=== PATIENT | female | born 1960 | race Caucasian/White ===

== ENCOUNTER → 2017-09-02 | Outpatient (CLI) | payer OTHER ==
--- NOTE | 2017-09-04 13:17 | CT ---
"EXAMINATION TYPE: CT abdomen pelvis w con DATE OF EXAM: 09/02/2017, images are reviewed 09/04/2017 upon receipt of the comparison images. COMPARISON: [facility] dated 12/21/2016. INDICATION: Pancreatic CA history of Whipple, gross hematuria, bilateral flank pain DLP: 411.1 mGycm, Automated exposure control for dose reduction was used. CONTRAST: 125 mL of Isovue 370. Study performed with Oral Contrast TECHNIQUE: Axial images were obtained from above the diaphragm to the pubic rami in the axial plane a t 5 mm thick sections. Reconstructed images are reviewed on the computer in the coronal plane. FINDINGS: Limited CT sections are obtained the lung bases. There is interval development of multiple bilateral pulmonary nodules ranging approximately 0.62 1.0 cm in size. Some nodules have cavitation. Note is made of bilateral breast prostheses. CT ABDOMEN: Liver: There is an area of increased contrast within the anterior dome of the right lobe liver measur ing approximately 6.2 x 2.8 cm in size. This appears to been interval change from comparison study. T here is air in the biliary tree. There is subtle 0.8 cm hypodensity adjacent to the ligamentum teres within the right lobe liver. Series 5 image 40. A ill-defined 1.0 cm is in the right lobe liver. Seri es 5 image 35. There is a 0.8 cm hypodensity in the right lobe tip of the liver. Series 5 image 65. Spleen: Normal Pancreas: Pancreas is atrophic. The tail and body the pancreas are otherwise unremarkable. There is b een a Whipple's procedure and the head of the pancreas is been resected and there is anastomosis with the antrum of the stomach posteriorly. There appears to be recurrent mass inferior to the pancreas a djacent to the mesenteric vein and splenic artery is visualized series 5 image 50. This area is sligh tly hypodense and measures 2.9 x 1.7 cm. This appears to been interval change from the comparison ronnie dy of December 2016. Lymphadenopathy could be considered. Adrenal glands: The adrenal glands are normal. Gallbladder: Surgically absent Kidneys: No masses are evident. There is moderate right hydronephrosis. An obstructing 1.3 x 0.8 cm c alcification is present ureteral pelvic junction on the right. No cysts are present. Delayed images were obtained through the kidneys, which remain unremarkable. Aorta: Vascular calcification is within the aorta. Inferior vena cava: Normal. CT PELVIS: Loops of bowel within the abdomen and pelvis are normal. Fecal debris is through the colon. Some fecal retention within the distal colon may be present. Appendix: Not identified. Urinary bladder: Decompressed with very limited evaluation. Genitourinary structures: Uterus and ovaries are ill-defined. There is fullness anterior to the rectu m and above the urinary bladder which could be residual uterus and vaginal cuff. Correlate with patie nt's surgical history. Osseous structures: No suspicious lytic or sclerotic lesions. Facet degenerative changes are within t he lumbar spine. IMPRESSIONS: 1. Multiple pulmonary nodules, some of which appear connected to have cavitation are present, marked ly increased in number and size from the comparison study of December 2016 suspicious for metastatic disease. 2. Lymph node or recurrent pancreatic cancer adjacent to the mesenteric vein and splenic artery withi n the midabdomen. 3. Ill-defined hypodensities within the liver may be metastatic disease. 4. There is an additional area of some increased contrast within the anterior right lobe liver near t he dome which is nonspecific and ill-defined metastatic disease, inflammatory change, and focal fatty sparing could be considered. 5. Obstructing 1.3 x 0.8 cm right ureteral pelvic junction stone with moderate right hydronephrosis. A [place] level critical message alert has been initiated for Howie Moulton MD via the [employer] 36 0 | Critical Results System on 09/04/2017 1:14 PM. This message alert has been sent to Howie Moulton MD via the preferences provided by the clinician for the receipt of Radiology Critical Findings. [facility] ID [id number]."
== END | disposition home or self-care (01) ==
LOC: RADPROMAIN 10:44
PROVIDERS: ATTEND Internal Medicine Hematology & Oncology
DX: C25.7 Malignant neoplasm of other parts of pancreas (principal); C78.7 Secondary malignant neoplasm of liver and intrahepatic bile duct; N20.1 Calculus of ureter; Z88.1 Allergy status to other antibiotic agents
CPT/HCPCS: 74177; J1642; Q9967

== ENCOUNTER → 2017-09-06 | Outpatient (CLI) | payer OTHER ==
--- NOTE | 2017-09-06 15:34 | XR ---
Abdomen HISTORY: Kidney stones, pancreatic cancer Correlation to CT abdomen pelvis 09/02/2017 There is a calcification overlying the right renal pelvis measuring approximately 13 mm as on prior C T. Multiple calcifications are present within the pelvis likely representing phleboliths. There is no pneumoperitoneum or bowel obstruction. Spinal curvature is again noted. Lung bases are not included on the exam. IMPRESSION: Proximal right ureteral calculus or renal pelvic stone again seen.
== END | disposition home or self-care (01) ==
LOC: RADXRMAIN 12:58
PROVIDERS: ATTEND Urology
DX: N20.0 Calculus of kidney (principal)
CPT/HCPCS: 74018

== ENCOUNTER → 2017-09-07 | Outpatient (CLI) | payer OTHER ==
--- NOTE | 2017-09-10 12:35 | PE ---
Nuclear medicine PET/CT HISTORY: Pancreatic carcinoma, subsequent Patient received 13.3 mCi F-18 FDG intravenously in delayed scanning was performed from skull base to the mid thighs. Localization and attenuation correction CT scan was also performed. Correlation to prior CT abdomen pelvis 12/31/2016, 09/02/2017 Neck and chest: Multiple bilateral pulmonary nodules with cavitation are seen within the lungs, great er than 30 in each lung. The largest measures only 15 mm. There is no pleural or pericardial effusion . No suspicious hypermetabolic uptake. No mediastinal, axillary, or hilar adenopathy. Abdomen pelvis: There are thought to be 3 foci of hypermetabolic uptake within the liver, SUV 2.72-4. 3. These foci are not well seen on the CT scan. Pneumobilia changes are present. Soft tissue mass is present just inferior to the pancreas adjacent to the superior mesenteric vein and artery which shows associated hypermetabolic uptake, SUV is 5.6. Probable physiologic bowel activity noted. Osseous structures within normal limits. IMPRESSION: Metastatic disease as described.
== END | disposition home or self-care (01) ==
LOC: RADPETMAIN 16:09
PROVIDERS: ATTEND Internal Medicine Hematology & Oncology
DX: C25.0 Malignant neoplasm of head of pancreas (principal); R91.8 Other nonspecific abnormal finding of lung field; R93.2 Abnormal findings on diagnostic imaging of liver and biliary tract
CPT/HCPCS: 78815; A9552

== ENCOUNTER → 2017-09-13 | Outpatient (CLI) | payer OTHER ==
--- NOTE | 2017-09-13 13:33 | US ---
EXAMINATION TYPE: US liver DATE OF EXAM: 09/13/2017 COMPARISON: CT 09/02/2017, PET/CT 09/07/2017 CLINICAL HISTORY: Liver Mass K76.89. h/o pancreatic CA and whipple procedure performed 1 year prior EXAM MEASUREMENTS: Liver Length: 14.9 cm Gallbladder Wall: Surgically absent CBD: 0.9 cm Right Kidney: 10.4 x 4.9 x 4.2 cm Pancreas: limited views of pancreatic area, patient is post Whipple procedure Liver: 2 hypoechoic lesion seen left lobe, #1 lateral left lobe = 1.4cm, #2 medial left lobe = 1.1cm , heterogeneous texture of right dome noted corresponds to CT findings Gallbladder: Surgically absent Evidence for sonographic Espinoza's sign: no CBD: wnl for post cholecystectomy Right Kidney: 2.1cm inferior renal stone seen with twinkle artifact Right kidney shows normal cortical medullary differentiation, mild hydronephrosis noted. IMPRESSION: Hypoechoic lesions within the left lobe of the liver corresponding to PET/CT findings and are suspicious for metastatic disease. Right-sided nephrolithiasis with mild hydronephrosis.
== END ==
LOC: RADUSMAIN 11:33
PROVIDERS: ATTEND Pathology Cytopathology
DX: N13.2 Hydronephrosis with renal and ureteral calculous obstruction (principal); Z85.07 Personal history of malignant neoplasm of pancreas
CPT/HCPCS: 76705

== ENCOUNTER → 2017-09-13 | Outpatient (CLI) | payer OTHER ==
[2017-09-13 13:13] LABS: Basophils % (A) 0 %; Eosinophils # (A) 0.1 k/uL (0-0.7); Eosinophils % (A) 2 %; HCT 42.9 % (34.0-46.0); HGB 14.2 gm/dL (11.4-16.0); Lymphocytes # (A) 0.8 k/uL (1.0-4.8); Lymphocytes % (A) 13 %; MCH 30.3 pg (25.0-35.0); MCHC 33.1 g/dL (31.0-37.0); MCV 91.5 fL (80.0-100.0); Monocytes # (A) 0.4 k/uL (0-1.0); Monocytes % (A) 7 %; Neutrophils # (A) 4.5 k/uL (1.3-7.7); Neutrophils % (A) 76 %; Platelet Count 351 k/uL (150-450); RBC 4.69 m/uL (3.80-5.40); RDW 13.3 % (11.5-15.5)
[2017-09-13 13:26] LABS: Anion Gap 11 mmol/L; Blood Urea Nitrogen 18 mg/dL (7-17); Carbon Dioxide 27 mmol/L (22-30); Chloride 103 mmol/L (98-107); Glucose 94 mg/dL (74-99); Potassium 4.8 mmol/L (3.5-5.1); Sodium 141 mmol/L (137-145)
== END | disposition home or self-care (01) ==
LOC: LABWHC1 12:31 → LABPAT 12:31
PROVIDERS: ATTEND Urology
DX: N20.0 Calculus of kidney (principal)
CPT/HCPCS: 36415; 80048; 85025; 93005

== ENCOUNTER → 2017-09-19 | Outpatient (CLI) | payer OTHER ==
--- NOTE | 2017-09-19 13:32 | XR ---
Abdomen HISTORY: Renal calculus Frontal view of the abdomen correlated to prior abdomen 09/06/2017 The renal calculus in the paraspinal location is thought to be fragmented in the interval. There is o verlying bowel gas which obscures detail. Multiple calcifications are present within the pelvis, susp ect small stones at the level of the distal ureter on the right. There is a mild dextroscoliosis. IMPRESSION: Interval lithotripsy as described.
== END | disposition home or self-care (01) ==
LOC: RADXRMAIN 11:24
PROVIDERS: ATTEND Urology
DX: N20.0 Calculus of kidney (principal); Z98.890 Other specified postprocedural states
CPT/HCPCS: 74018

== ENCOUNTER → 2017-09-23 | Outpatient (CLI) | payer OTHER ==
--- NOTE | 2017-09-23 09:34 | XR ---
EXAMINATION TYPE: XR KUB DATE OF EXAM: 09/23/2017 COMPARISON: 09/19/2017 HISTORY: Renal calculi with right-sided pain and stone TECHNIQUE: One view abdominal series FINDINGS: The osseous structures are intact. The bowel gas pattern is nonspecific. Previous surgery noted in t he left abdomen. Hypertrophic changes of the spine noted. Pelvis: Numerous calcifications in the pelvis are likely vascular but nonspecific. Right kidney: There is a stable somewhat linear in morphology calcification lower pole right kidney m easuring 2 mm in diameter extending a length of 4 mm. Left kidney: No definite calcification seen. IMPRESSION: 1. Nonspecific abdomen. Stable lower pole right renal calculus measuring 2 x 4 mm.
== END ==
LOC: RADXRMAIN 09:16
PROVIDERS: ATTEND Urology
DX: N20.0 Calculus of kidney (principal)
CPT/HCPCS: 74018

== ENCOUNTER → 2017-09-26 | Day surgery (SDC) | payer OTHER ==
[~2017-09-26] MED LIST: ALPRAZolam 0.5 MG TAB PO ONE; LIDOCAINE 1% INJ 10MG/ML (20 ML MDV) SQ ONE; MORPHINE SULFATE 2 MG/ML SYRINGE IVP PRN; MORPHINE SULFATE 4 MG/ML SYRINGE IVP PRN
[2017-09-26 09:29] LABS: Mean Platelet Volume 6.4; Platelet Count 505 k/uL (150-450)
[2017-09-26 09:38] LABS: INR 1.2 (<1.2); Prothrombin Time 11.5 sec (9.0-12.0)
[2017-09-26] MEDS: MORPHINE SULFATE 4 MG/ML SYRINGE IVP ONE ×2 (10:08→11:26)
[2017-09-26 11:54] VITALS: TEMP 98.2
[2017-09-26 13:18] VITALS: RESP 16
--- NOTE | 2017-09-26 14:26 | US ---
EXAMINATION TYPE: US biopsy liver DATE OF EXAM: 09/26/2017 HISTORY: Liver masses, pancreatic carcinoma. FINDINGS: Maximal barrier technique was utilized. The skin overlying a suitable path to the patient' s mass in the left lobe was localized with ultrasound and the overlying skin prepped and draped. Ult rasound was utilized with sterile technique. Lidocaine was used for local anesthesia. A skin amparo w as made with a scalpel. An 17-gauge guide needle was advanced under direct ultrasound guidance and c ore specimen obtained of the mass within 18-gauge needle coaxially. Attempt to obtain an additional specimen was made without success. Attention directed to an additional lesion within the left lobe. 1 8-gauge needle was advanced and the level of the mass core specimen obtained. Specimens submitted in formalin to Pathology. Following the procedure, hemostasis achieved and the patient is discharged in stable condition without complication. IMPRESSION:STATUS POST ULTRASOUND GUIDED CORE BIOPSIES OF LIVER MASSES, PATHOLOGY IS PENDING. THIS P ROCEDURE IS PERFORMED BY THE UNDERSIGNED.
[2017-09-26 15:39] VITALS: BP 110/72; PULSE 72
== END | disposition home or self-care (01) ==
LOC: RADPROMAIN 08:56
PROVIDERS: ATTEND Internal Medicine Hematology & Oncology
DX: C78.7 Secondary malignant neoplasm of liver and intrahepatic bile duct (principal); C25.9 Malignant neoplasm of pancreas, unspecified
CPT/HCPCS: 85049; 85610; 88342; 88307; 88341; 96374; 47000; 76942; J2270; J2001; J1642

== ENCOUNTER → 2017-12-06 | Outpatient (CLI) | payer OTHER ==
[2017-12-06 12:03] LABS: Blood Urea Nitrogen 11 mg/dL (7-17)
--- NOTE | 2017-12-06 14:25 | CT ---
EXAMINATION TYPE: CT ChestAbdPelvis w con DATE OF EXAM: 12/06/2017 COMPARISON: CT abdomen pelvis September 02, 2017 and older outside studies. HISTORY: Pancreatic CA, suspected mets CT DLP: 1135 mGycm. Automated Exposure Control for Dose Reduction was Utilized. CONTRAST: CT scan of the thorax, abdomen and pelvis is performed with IV Contrast, patient injected with 100 mL of Isovue 370. FINDINGS: LUNGS: There are multiple scattered cavitary lesions throughout the lung parenchyma bilaterally. Ther e is a 13 x 9 mm nodule in the left lung base posteriorly axial image 49 redemonstrated that is fairl y stable from prior. No pleural effusion or pneumothorax is seen bilaterally. There is left basilar l inear scarring redemonstrated axial image 41. There is mild scattered areas of linear scarring and/or atelectasis. MEDIASTINUM: There are no greater than 1 cm hilar or mediastinal lymph nodes. No cardiomegaly is s een. There is right internal jugular Mediport catheter terminating in right ventricle. There are sma ll to tiny pericardial effusion axial image 42 increased in size from prior OTHER: Bilateral subglandular implants are noted. LIVER/GB: Liver is markedly hypodense consistent with fatty infiltration. Geographic areas of hyperde nsity likely reflect areas of focal fatty sparing or altered blood flow. Central pneumobilia is redem onstrated. Gallbladder is not seen and presumed surgically absent. PANCREAS: The mid to distal body and tail of pancreas are atrophic with ductal dilatation. Inferior t o this there is persistent abnormal tissue encasing SMA measuring roughly 3.2 x 2.2 cm on axial image 62 I suspect there has been prior resection of the pancreatic head which is not well identified on c urrent study adjacent to nonopacified duodenal sweep. SPLEEN: No significant abnormality is seen. ADRENALS: Slight thickening to left adrenal gland is stable. KIDNEYS: There is 4 mm calculus lower pole level right kidney coronal image 41. No suspicious renal m asses or hydronephrosis. Interval clearance of right collecting system calculus. BOWEL: Areas of moderate wall thickening throughout the colon are felt present for reference right an d transverse colon. Patient is very little transabdominal fat making evaluation suboptimal. GENITAL ORGANS: Anteverted uterus is seen. There is redemonstration of abnormal 2.9 x 2.0 cm cystic l esion right pelvis axial image 107. Scattered pelvic phleboliths are seen. LYMPH NODES: No greater than 1cm abdominal or pelvic lymph nodes are appreciated. OSSEOUS STRUCTURES: There is slight S-shaped scoliosis with mild multilevel spurring. OTHER: No significant additional abnormality is seen. IMPRESSION: 1. Interval neoplastic progression with enlarging inferior mass identified. Diffuse pulmonary hematog enous metastatic disease redemonstrated. Target basilar lesion is not significantly increased in size . 2. New moderate multifocal colitis, correlate clinically for infectious or inflammatory etiologies. 3. Malpositioned tip of Mediport catheter redemonstrated.
== END | disposition home or self-care (01) ==
LOC: RADPROMAIN 12-05 09:14
PROVIDERS: ATTEND Internal Medicine Hematology & Oncology
DX: C25.0 Malignant neoplasm of head of pancreas (principal); K52.9 Noninfective gastroenteritis and colitis, unspecified
CPT/HCPCS: 82565; 84520; 71260; 74177; J1642; Q9967

== ENCOUNTER → 2018-05-20 | Outpatient (CLI) | payer BC ==
--- NOTE | 2018-05-20 15:22 | CT ---
EXAMINATION TYPE: CT ChestAbdPelvis w con DATE OF EXAM: 05/20/2018 COMPARISON: 02/19/2018 HISTORY: Follow up pancreatic CA. CT DLP: 977 mGycm CONTRAST: CT scan of the chest, abdomen and pelvis is performed with Oral Contrast and with IV Contrast, patien t injected with 100 mL of Isovue 300. CT Chest: LUNGS: Innumerable cavitary pulmonary nodules are seen throughout both lung montemayor which have progres sed with regards to size and number. The largest nodule seen within the right upper lobe anteriorly c urrently measures 14 mm versus 9 mm previously. The largest nodule within the left lung is identified within the left lower lobe and measures 18 mm versus 15 mm previously. MEDIASTINUM: Thoracic aorta is of normal caliber. The heart is not enlarged. No evidence for media stinal mass or adenopathy. HILAR STRUCTURES: No evidence for mass. No hilar adenopathy is appreciated. OTHER: No significant abnormality. CONTRAST CT ABDOMEN AND PELVIS FINDINGS: LIVER/GB: Hypoattenuating lesions are noted within the left hepatic lobe measuring 2.1 cm and 2.1 cm respectively versus prior measurement of 2.4 cm. Additional area of abnormal attenuation is noted wit hin the left hepatic lobe medial segment measuring 2.7 cm versus 1.7 cm previously. New nodule is see n right hepatic lobe anterior segment measuring 1.1 cm. Several additional smaller new lesions are al so identified. There is intra and extra hepatic biliary ductal dilatation. There is evidence of pneum obilia. PANCREAS: There is an enlarging soft tissue mass at the level of the pancreatic body measuring 5.1 x 3.2 cm with encasement of the SMA. There has been prior partial pancreatectomy with remnant distal linus dy and tail are noted. Pancreatic ductal dilatation identified. SPLEEN: No splenic enlargement. No lesion seen. ADRENALS: No nodule. No thickening. KIDNEYS/BLADDER: No hydronephrosis. No nephrolithiasis. No disctinct renal mass. BOWEL: Normal appendix. Normal bowel caliber. No inflammation. GENITAL ORGANS: Uterus and left ovary are unremarkable. Right ovarian cyst noted measuring 3.8 cm. LYMPH NODES: No greater than 1cm abdominal or pelvic lymph nodes are appreciated. AORTA: No significant abnormality. OSSEOUS STRUCTURES: No significant abnormality is seen. OTHER: No significant additional abnormality is seen. IMPRESSION: 1. Recurrent pancreatic mass at the level of the pancreatic body with encasement of the SMA as discus sed above. Pancreatic ductal dilatation as well as intra and extrahepatic biliary ductal dilatation. 2. New lesions throughout the liver compatible with aggressive hepatic metastatic disease. 3.Innumerable cavitary pulmonary nodules are seen throughout both lung montemayor which have progressed w ith regards to size and number.
== END | disposition home or self-care (01) ==
LOC: RADPROMAIN 13:27
PROVIDERS: ATTEND Internal Medicine Hematology & Oncology
DX: C25.0 Malignant neoplasm of head of pancreas (principal); K76.9 Liver disease, unspecified; K83.8 Other specified diseases of biliary tract; R91.8 Other nonspecific abnormal finding of lung field; Z91.041 Radiographic dye allergy status
CPT/HCPCS: 71260; 74177; J1642; Q9967

== ENCOUNTER 2018-07-13 18:51 | Inpatient (IN) | payer BC ==
[2018-07-13] MEDS ORDERED: LACTULOSE 20 GM/30 ML CUP PO STA (19:15)
[2018-07-13] MEDS ORDERED: SODIUM CHLORIDE 0.9% 1,000 ML IV ONE ×2 (19:15)
--- NOTE | 2018-07-13 19:22 | ED ---
General Adult HPI - General Chief complaint: Altered Mental Status Stated complaint: AMS Time Seen by Provider: 07/13/18 19:05 Source: patient, RN notes reviewed, old records reviewed Mode of arrival: ambulatory Limitations: no limitations - History of Present Illness Initial comments: 58 -year-old female with recurrent pancreatic cancer and hepatic encephalopathy presenting for evaluation of jaundice and altered mental status. Patient is accompanied by her was able to give a detailed history. Patient had recent percutaneous biliary drain placed. This is been draining according to her . She has had decreased appetite and worsening abdominal distention. No reported fevers. No reported vomiting. She has been on lactulose,. Last bowel movement was yesterday evening. - Related Data Home Medications Medication Instructions Recorded Confirmed ALPRAZolam [Xanax] 0.75 mg PO DAILY PRN 09/23/17 07/13/18 Venlafaxine HCl [Effexor XR] 150 mg PO DAILY 09/23/17 07/13/18 Lipase/Protease/Amylase [Humberto Johnson 4 cap PO ACHS 02/17/18 07/13/18 24,000 Units Capsule] Dronabinol [Marinol] 5 mg PO BID 06/30/18 07/13/18 Lipase/Protease/Amylase [Humberto Johnson 2 cap PO DIRECTED PRN 06/30/18 07/13/18 24,000 Units Capsule] Ondansetron [Zofran ODT] 8 mg PO Q8H PRN 06/30/18 07/13/18 Pantoprazole Sodium [Protonix] 40 mg PO DAILY 06/30/18 07/13/18 Prochlorperazine [Compazine] 10 mg PO Q6H PRN 06/30/18 07/13/18 fentaNYL 25MCG/HR PATCH [Duragesic 1 patch TRANSDERM Q72H 06/30/18 07/13/18 25MCG/HR] Nivolumab [Opdivo] 240 mg IVPB [id number] 07/02/18 07/13/18 Diphenoxylate HCl/Atropine 2 tab PO Q6HR 07/13/18 07/13/18 [Lomotil 2.5-0.025 mg Tablet] Meloxicam [Mobic] 15 mg PO DAILY 07/13/18 07/13/18 Vortioxetine Hydrobromide 20 mg PO DAILY 07/13/18 07/13/18 [Trintellix] Previous Rx's Medication Instructions Recorded Lactulose [Cephulac] 20 gm PO DAILY #900 ml 07/07/18 Morphine Sulfate ER [Ms Contin] 60 mg PO Q12HR 14 Days #28 tab 07/07/18 Allergies Allergy/AdvReac Type Severity Reaction Status Date / Time cephalexin [From Keflex] Allergy Anaphylaxis Verified 07/13/18 19:23 Iodinated Contrast- Oral and Allergy Rash/Hives Verified 07/13/18 19:23 IV Dye prednisone Allergy Anaphylaxis Verified 07/13/18 19:23 tuna oil AdvReac Mild Nausea & Verified 07/13/18 19:23 Vomiting Review of Systems ROS Statement: Those systems with pertinent positive or pertinent negative responses have been documented in the HPI. ROS Other: All systems not noted in ROS Statement are negative. Past Medical History Past Medical History: Cancer, GERD/Reflux, Liver Disease, Sleep Apnea/C PAP/BIPAP, Syncope, Thyroid Disorder Additional Past Medical History / Comment(s): Metastatic pancreatic cancer with mets to liver/lymphnodes-had surgery and chemo, neuropathy from chemo, past REGLA with CPap but not used since extreme weight loss, hypothyroid, kidney stones, murmur, History of Any Multi-Drug Resistant Organisms: None Reported Additional Past Surgical History / Comment(s): ERCP, pancreatic head mass aspiration, Whipple procedure 2017 at [facility], liver bx, breast implants,dental implants, port placement Past Anesthesia/Blood Transfusion Reactions: No Reported Reaction Past Psychological History: Anxiety, Depression Smoking Status: Never smoker - Past Family History Mother Family Medical History: Cancer Additional Family Medical History / Comment(s): from complications of stomach cancer Father Family Medical History: Cancer, Prostate Disorder Additional Family Medical History / Comment(s): prostate cancer. General Exam Limitations: no limitations General appearance: in no apparent distress, lethargic Head exam: Present: atraumatic, normocephalic Eye exam: Present: scleral icterus ENT exam: Present: mucous membranes dry Respiratory exam: Present: normal lung sounds bilaterally. Absent: respiratory distress, wheezes Cardiovascular Exam: Present: normal rhythm, tachycardia GI/Abdominal exam: Present: soft, distended, tenderness. Absent: guarding, rebound Extremities exam: Present: normal inspection, normal capillary refill. Absent: pedal edema Neurological exam: Absent: motor sensory deficit Skin exam: Present: warm, dry, intact. Absent: cyanosis, diaphoretic (Jaundice) Course Vital Signs 07/13/18 19:00 Temperature 98.0 F Pulse Rate 119 H Respiratory 20 Rate Blood Pressure 105/73 O2 Sat by Pulse 99 Oximetry EKG Findings - EKG Comments: EKG Findings:: EKG: Sinus tachycardia, rightward axis, rate of 104, CO interval 156, QRS duration 88, QTC 397. Medical Decision Making - Medical Decision Making 58-year-old female with recurrent pancreatic cancer. Patient is altered, nonfocal neurologic exam. Finally jaundice. Laboratory studies obtained, patient has mild leukocyte esterase or 0.7, hemoglobin 10.1. Bilirubin elevated 14.8, elevated alkaline phosphatase and transaminitis. Ammonia 83 which is likely the predominant cause of her symptoms. She is given IV fluids and lactulose in the emergency department. She will be admitted to the ICU for close monitoring. Case discussed with both pulmonary well cleaner and Dr. Zamora who will admit. - Lab Data Result diagrams: 07/13/18 20:05 07/13/18 20:05 Lab Results 07/13/18 07/13/18 07/13/18 Range/Units 19:39 20:05 20:05 WBC 12.7 H (3.8-10.6) k/uL RBC 3.49 L (3.80-5.40) m/uL Hgb 10.1 L (11.4-16.0) gm/dL Hct 33.0 L (34.0-46.0) % MCV 94.7 (80.0-100.0) fL MCH 28.9 (25.0-35.0) pg MCHC 30.5 L (31.0-37.0) g/dL RDW 21.8 H (11.5-15.5) % Plt Count 330 (150-450) k/uL Neutrophils % 81 % Lymphocytes % 12 % Monocytes % 5 % Eosinophils % 1 % Basophils % 0 % Neutrophils # 10.3 H (1.3-7.7) k/uL Lymphocytes # 1.5 (1.0-4.8) k/uL Monocytes # 0.6 (0-1.0) k/uL Eosinophils # 0.1 (0-0.7) k/uL Basophils # 0.0 (0-0.2) k/uL Hypochromasia Marked Poikilocytosis Slight Anisocytosis Moderate Macrocytosis Slight Sodium 137 (137-145) mmol/L Potassium 3.6 (3.5-5.1) mmol/L Chloride 100 (98-107) mmol/L Carbon Dioxide 28 (22-30) mmol/L Anion Gap 9 mmol/L BUN 13 (7-17) mg/dL Creatinine 0.49 L (0.52-1.04) mg/dL Est GFR (CKD-EPI)AfAm >90 (>60 ml/min/1.73 sqM) Est GFR (CKD-EPI)NonAf >90 (>60 ml/min/1.73 sqM) Glucose 146 H (74-99) mg/dL POC Glucose (mg/dL) 163 H (75-99) mg/dL POC Glu [employer] Cutting Machine Operator ID Jeannine Chase Calcium 8.6 (8.4-10.2) mg/dL Total Bilirubin 14.8 H (0.2-1.3) mg/dL AST 100 H (14-36) U/L ALT 58 H (9-52) U/L Alkaline Phosphatase 695 H (38-126) U/L Ammonia (<30) umol/L Total Protein 6.5 (6.3-8.2) g/dL Albumin 2.7 L (3.5-5.0) g/dL 07/13/18 Range/Units 20:05 WBC (3.8-10.6) k/uL RBC (3.80-5.40) m/uL Hgb (11.4-16.0) gm/dL Hct (34.0-46.0) % MCV (80.0-100.0) fL MCH (25.0-35.0) pg MCHC (31.0-37.0) g/dL RDW (11.5-15.5) % Plt Count (150-450) k/uL Neutrophils % % Lymphocytes % % Monocytes % % Eosinophils % % Basophils % % Neutrophils # (1.3-7.7) k/uL Lymphocytes # (1.0-4.8) k/uL Monocytes # (0-1.0) k/uL Eosinophils # (0-0.7) k/uL Basophils # (0-0.2) k/uL Hypochromasia Poikilocytosis Anisocytosis Macrocytosis Sodium (137-145) mmol/L Potassium (3.5-5.1) mmol/L Chloride (98-107) mmol/L Carbon Dioxide (22-30) mmol/L Anion Gap mmol/L BUN (7-17) mg/dL Creatinine (0.52-1.04) mg/dL Est GFR (CKD-EPI)AfAm (>60 ml/min/1.73 sqM) Est GFR (CKD-EPI)NonAf (>60 ml/min/1.73 sqM) Glucose (74-99) mg/dL POC Glucose (mg/dL) (75-99) mg/dL POC Glu Glass Cutting [employer] Operator ID Calcium (8.4-10.2) mg/dL Total Bilirubin (0.2-1.3) mg/dL AST (14-36) U/L ALT (9-52) U/L Alkaline Phosphatase (38-126) U/L Ammonia 83 H (<30) umol/L Total Protein (6.3-8.2) g/dL Albumin (3.5-5.0) g/dL Disposition Clinical Impression: Hepatic encephalopathy, Altered mental status, Hyperammonemia Disposition: ADMITTED IP TO THIS [facility] Condition: Serious Is patient prescribed a controlled substance at d/c from ED?: No Referrals: Howie Moulton MD [Primary Care Provider] - 1-2 days Decision to Admit Reason: Admit from EC Decision Date: 07/13/18 Decision Time: 20:59
[2018-07-13 19:41] LABS: Glucose,Whole Blood 163 mg/dL (75-99)
[2018-07-13 20:28] LABS: Anisocytosis Moderate; Basophils % (A) 0 %; Eosinophils # (A) 0.1 k/uL (0-0.7); Eosinophils % (A) 1 %; HGB 10.1 gm/dL (11.4-16.0); Hypochromasia Marked; Lymphocytes # (A) 1.5 k/uL (1.0-4.8); Lymphocytes % (A) 12 %; MCH 28.9 pg (25.0-35.0); MCHC 30.5 g/dL (31.0-37.0); MCV 94.7 fL (80.0-100.0); Macrocytosis Slight; Mean Platelet Volume 7.2; Monocytes # (A) 0.6 k/uL (0-1.0); Monocytes % (A) 5 %; Neutrophils # (A) 10.3 k/uL (1.3-7.7); Neutrophils % (A) 81 %; Platelet Count 330 k/uL (150-450); Poikilocytosis Slight; RBC 3.49 m/uL (3.80-5.40); RDW 21.8 % (11.5-15.5); WBC 12.7 k/uL (3.8-10.6)
[2018-07-13 20:37] LABS: ALT 58 U/L (9-52); AST 100 U/L (14-36); Albumin 2.7 g/dL (3.5-5.0); Alkaline Phosphatase 695 U/L (38-126); Anion Gap 9 mmol/L; Blood Urea Nitrogen 13 mg/dL (7-17); Calcium 8.6 mg/dL (8.4-10.2); Carbon Dioxide 28 mmol/L (22-30); Chloride 100 mmol/L (98-107); Glucose 146 mg/dL (74-99); Potassium 3.6 mmol/L (3.5-5.1); Sodium 137 mmol/L (137-145); Total Bilirubin 14.8 mg/dL (0.2-1.3); Total Protein 6.5 g/dL (6.3-8.2)
[2018-07-13] MEDS ORDERED: NALOXONE 0.4 MG/ML 1 ML VIAL IV PRN (20:55)
[2018-07-13 21:06] LABS: INR 1.2 (<1.2); Partial Thromboplastin Time 26.2 sec (22.0-30.0); Prothrombin Time 12.2 sec (9.0-12.0)
[2018-07-13 22:57] LABS: Glucose,Whole Blood 140 mg/dL (75-99)
[2018-07-13] MEDS: MORPHINE SULFATE ER 60 MG TABLET PO SCH (23:05)
[2018-07-14] MEDS ORDERED: HYDROmorphone 0.5 MG/0.5 ML SYRINGE IVP STA (02:11)
[2018-07-14 02:51] LABS: Appearance,Urine Cloudy (Clear); Bilirubin,Urine 3+ (Negative); Blood,Urine Negative (Negative); Color,Urine Dark Brown; Glucose,Urine (UA) Negative (Negative); Hyaline Casts,Urine 4 /lpf (0-2); Ketones,Urine Negative (Negative); Leukocyte Esterase,Urine Negative (Negative); Mucus,Urine Few /hpf; Nitrite,Urine Negative (Negative); PH, Urine 6.5 (5.0-8.0); Protein,Urine Trace (Negative); RBC,Urine 2 /hpf (0-5); Squamous Epithelial Cell,Urine <1 /hpf (0-4); Urobilinogen,Urine <2.0 mg/dL (<2.0); WBC,Urine 2 /hpf (0-5)
[2018-07-14 04:43] LABS: Anisocytosis Moderate; Basophils % (A) 0 %; Eosinophils # (A) 0.1 k/uL (0-0.7); Eosinophils % (A) 1 %; HCT 29.1 % (34.0-46.0); Hypochromasia Marked; Lymphocytes # (A) 1.6 k/uL (1.0-4.8); Lymphocytes % (A) 16 %; MCH 29.1 pg (25.0-35.0); MCV 93.8 fL (80.0-100.0); Macrocytosis Slight; Mean Platelet Volume 7.1; Monocytes # (A) 0.6 k/uL (0-1.0); Monocytes % (A) 6 %; Neutrophils # (A) 7.4 k/uL (1.3-7.7); Neutrophils % (A) 74 %; Platelet Count 254 k/uL (150-450); Poikilocytosis Slight; RDW 21.6 % (11.5-15.5); WBC 9.9 k/uL (3.8-10.6)
[2018-07-14 04:56] LABS: Anion Gap 5 mmol/L; Blood Urea Nitrogen 12 mg/dL (7-17); Carbon Dioxide 30 mmol/L (22-30); Chloride 103 mmol/L (98-107); Glucose 122 mg/dL (74-99); Magnesium 2.2 mg/dL (1.6-2.3); Phosphorus 2.7 mg/dL (2.5-4.5); Potassium 3.3 mmol/L (3.5-5.1); Sodium 138 mmol/L (137-145)
[2018-07-14] MEDS ORDERED: ONDANSETRON ODT 8 MG TAB.RAPDIS PO PRN (05:22)
[2018-07-14] MEDS ORDERED: POTASSIUM BICARBONATE/CIT AC 20 MEQ TABLET.EFF PO ONE (05:26)
[2018-07-14] MEDS ORDERED: HYDROmorphone 0.5 MG/0.5 ML SYRINGE IVP PRN (05:51)
--- NOTE | 2018-07-14 06:30 | P.HPIM ---
History of Present Illness H&P Date: 07/13/18 Chief Complaint: altered mental status 58-year-old female with history of stage IV pancreatic cancer with metastases to the liver and lung status post Whipple procedure Patient was brought into the hospital due to altered mental status and increased jaundice. Patient unable to provide meaningful history history was obtained by reviewing medical records. reported that biliary drain still functional patient is a known physician at our hospital. However he is reporting decreased appetite and worsening abdominal distention without any fevers or chills. No vomiting no evidence of GI bleeding at this point. Patient has been tolerating her medications and her last bowel movement was yesterday none melena nonbloody. patient has been moaning and seems to be complaining of both back and abd pain , back pain is chronic , but abd pain seems to be new onset. no hematuria Patient has recently been hospitalized and discharged 1 week ago for altered me ntal status which was thought to be due to hyperammonemia and hyperbilirubinemia abdominal CAT scan did show enlarging mass underneath the pancreatic head extending into the jordana hepatis with cut off bile duct at the level of jordana hepatis with moderate to severe intrahepatic ductal dilatation patient had the percutaneous biliary drainage without complications. Patient was discharged with referral to palliative care Review of Systems ROS unobtainable: due to mental status Past Medical History Past Medical History: Cancer, GERD/Reflux, Liver Disease, Sleep Apnea/CPAP/BIPAP, Syncope, Thyroid Disorder Additional Past Medical History / Comment(s): Metastatic pancreatic cancer with mets to liver/lymphnodes-had surgery and chemo, neuropathy from chemo, past REGLA with CPap but not used since extreme weight loss, hypothyroid, kidney stones, murmur, History of Any Multi-Drug Resistant Organisms: None Reported Additional Past Surgical History / Comment(s): ERCP, pancreatic head mass aspiration, Whipple procedure 2017 at [facility], liver bx, breast implants,dental implants, port placement Past Anesthesia/Blood Transfusion Reactions: No Reported Reaction Past Psychological History: Anxiety, Depression Smoking Status: Never smoker - Past Family History Mother Family Medical History: Cancer Additional Family Medical History / Comment(s): from complications of stomach cancer Father Family Medical History: Cancer, Prostate Disorder Additional Family Medical History / Comment(s): prostate cancer. Medications and Allergies Home Medications Medication Instructions Recorded Confirmed Type ALPRAZolam [Xanax] 0.75 mg PO DAILY PRN 09/23/17 07/13/18 History Venlafaxine HCl [Effexor XR] 150 mg PO DAILY 09/23/17 07/13/18 History Lipase/Protease/Amylase [Humberto Johnson 4 cap PO ACHS 02/17/18 07/13/18 History 24,000 Units Capsule] Dronabinol [Marinol] 5 mg PO BID 06/30/18 07/13/18 History Lipase/Protease/Amylase [Humberto Johnson 2 cap PO DIRECTED PRN 06/30/18 07/13/18 H istory 24,000 Units Capsule] Ondansetron [Zofran ODT] 8 mg PO Q8H PRN 06/30/18 07/13/18 History Pantoprazole Sodium [Protonix] 40 mg PO DAILY 06/30/18 07/13/18 History Prochlorperazine [Compazine] 10 mg PO Q6H PRN 06/30/18 07/13/18 History fentaNYL 25MCG/HR PATCH [Duragesic 1 patch TRANSDERM Q72H 06/30/18 07/13/18 History 25MCG/HR] Nivolumab [Opdivo] 240 mg IVPB [id number] 07/02/18 07/13/18 History Lactulose [Cephulac] 20 gm PO DAILY #900 ml 07/07/18 07/13/18 Rx Morphine Sulfate ER [Ms Contin] 60 mg PO Q12HR 14 Days #28 tab 07/07/18 07/13/18 Rx Diphenoxylate HCl/Atropine 2 tab PO Q6HR 07/13/18 07/13/18 History [Lomotil 2.5-0.025 mg Tablet] Meloxicam [Mobic] 15 mg PO DAILY 07/13/18 07/13/18 History Vortioxetine Hydrobromide 20 mg PO DAILY 07/13/18 07/13/18 History [Trintellix] Allergies Allergy/AdvReac Type Severity Reaction Status Date / Time cephalexin [From Keflex] Allergy Anaphylaxis Verified 07/13/18 19:23 Iodinated Contrast- Oral and Allergy Rash/Hives Verified 07/13/18 19:23 IV Dye prednisone Allergy Anaphylaxis Verified 07/13/18 19:23 tuna oil AdvReac Mild Nausea & Verified 07/13/18 19:23 Vomiting Physical Exam Vitals: Vital Signs Temp Pulse Resp BP Pulse Ox 07/14/18 03:00 92 11 L 117/75 97 07/14/18 02:00 97 13 115/77 90 L 07/14/18 01:00 96 11 L 115/80 94 L 07/14/18 00:00 98.1 F 94 12 119/74 92 L 07/13/18 23:00 96 11 L 122/77 95 07/13/18 22:23 105 H 16 119/81 98 07/13/18 22:00 99 117/84 92 L 07/13/18 21:20 100 16 118/85 96 07/13/18 21:00 102 H 118/82 96 07/13/18 20:00 123/82 94 L 07/13/18 19:29 123/82 98 07/13/18 19:00 98.0 F 119 H 20 105/73 99 Intake and Output 07/13/18 07/13/18 07/14/18 14:59 22:59 06:59 Intake Total 500 Output Total 700 Balance -200 Intake: IV 500 Sodium Chloride 0.9% 1, 500 000 ml @ 100 mls/hr IV . Q10H ONE Rx#:[id number] Output: Urine 700 Other: Voiding Method Diaper Incontinent Weight 56.699 kg Constitutional: patient moaning in pain , follows simple commands off / on Eyes: deep jaundice Pupils equal round reactive to light ENMT: NC/AT Oropharynx clear, no erythema, or exudates Neck: Supple, FROM, no masses, or JVD No carotid bruits No thyromegaly Lungs: Clear to auscultation Clear to percussion Normal respiratory effort, no accessory muscle use Cardiovascular: Heart regular in rate and rhythm, No murmurs, gallops, or rubs No peripheral edema Abdominal: distended, diffusely tender to palpation , no rebound tendern ess or rigidity percutaneous biliary drain in place in the epigastric region bowel sounds sluggish No abdominal wall hernia noted Skin: right mediport in place, surrounding skin is unremarkable Normal temperature, tone, texture, turgor No induration No subcutaneous nodules No rash, lesions No ulcers Extremities: No digital cyanosis No clubbing Pedal pulses intact and symmetrical Radial pulses intact and symmetrical No calf tenderness Psychiatric: patient is awake but confused Neuro moving all extremities with good tone, could not cooperate with neuro exam patient is moaning in pain and tearful Lymphatics: no palpable cervical or supraclavicular , or inguinal lymph nodes Results CBC & Chem 7: 07/14/18 04:30 07/14/18 04:30 Labs: Abnormal Lab Results - Last 24 Hours (Table) 07/13/18 07/13/18 07/13/18 Range/Units 19:39 20:05 20:05 WBC 12.7 H (3.8-10.6) k/uL RBC 3.49 L (3.80-5.40) m/uL Hgb 10.1 L (11.4-16.0) gm/dL Hct 33.0 L (34.0-46.0) % MCHC 30.5 L (31.0-37.0) g/dL RDW 21.8 H (11.5-15.5) % Neutrophils # 10.3 H (1.3-7.7) k/uL PT (9.0-12.0) sec INR (<1.2) Potassium (3.5-5.1) mmol/L Creatinine 0.49 L (0.52-1.04) mg/dL Glucose 146 H (74-99) mg/dL POC Glucose (mg/dL) 163 H (75-99) mg/dL Calcium (8.4-10.2) mg/dL Total Bilirubin 14.8 H (0.2-1.3) mg/dL AST 100 H (14-36) U/L ALT 58 H (9-52) U/L Alkaline Phosphatase 695 H (38-126) U/L Ammonia (<30) umol/L Albumin 2.7 L (3.5-5.0) g/dL Urine Appearance (Clear) Urine Protein (Negative) Urine Bilirubin (Negative) Hyaline Casts (0-2) /lpf Urine Mucus (None) /hpf 07/13/18 07/13/18 07/13/18 Range/Units 20:05 20:05 22:45 WBC (3.8-10.6) k/uL RBC (3.80-5.40) m/uL Hgb (11.4-16.0) gm/dL Hct (34.0-46.0) % MCHC (31.0-37.0) g/dL RDW (11.5-15.5) % Neutrophils # (1.3-7.7) k/uL PT 12.2 H (9.0-12.0) sec INR 1.2 H (<1.2) Potassium (3.5-5.1) mmol/L Creatinine (0.52-1.04) mg/dL Glucose (74-99) mg/dL POC Glucose (mg/dL) 140 H (75-99) mg/dL Calcium (8.4-10.2) mg/dL Total Bilirubin (0.2-1.3) mg/dL AST (14-36) U/L ALT (9-52) U/L Alkaline Phosphatase (38-126) U/L Ammonia 83 H (<30) umol/L Albumin (3.5-5.0) g/dL Urine Appearance (Clear) Urine Protein (Negative) Urine Bilirubin (Negative) Hyaline Casts (0-2) /lpf Urine Mucus (None) /hpf 07/14/18 07/14/18 07/14/18 Range/Units 02:40 04:30 04:30 WBC (3.8-10.6) k/uL RBC 3.10 L (3.80-5.40) m/uL Hgb 9.0 L (11.4-16.0) gm/dL Hct 29.1 L (34.0-46.0) % MCHC (31.0-37.0) g/dL RDW 21.6 H (11.5-15.5) % Neutrophils # (1.3-7.7) k/uL PT (9.0-12.0) sec INR (<1.2) Potassium 3.3 L (3.5-5.1) mmol/L Creatinine 0.44 L (0.52-1.04) mg/dL Glucose 122 H (74-99) mg/dL POC Glucose (mg/dL) (75-99) mg/dL Calcium 8.0 L (8.4-10.2) mg/dL Total Bilirubin (0.2-1.3) mg/dL AST (14-36) U/L ALT (9-52) U/L Alkaline Phosphatase (38-126) U/L Ammonia (<30) umol/L Albumin (3.5-5.0) g/dL Urine Appearance Cloudy H (Clear) Urine Protein Trace H (Negative) Urine Bilirubin 3+ H (Negative) Hyaline Casts 4 H (0-2) /lpf Urine Mucus Few H (None) /hpf Assessment and Plan Assessment: 58-year-old female with history of stage IV pancreatic cancer with metastases to the liver and lungs his post Whipple procedure admitted as inpatient with anticipated length of stay more than 48 hours due to altered mental status secondary to hyperbilirubinemia and hyperammonemia and new onset abd pain, patient will be maintained on lactulose targeting 3-5 bowel movements will monitor for any GI bleeding, we'll follow up liver function and ammonia level. She will be monitored initially in the ICU. Plan: Acute metabolic encephalopathy secondary to hyperammonemia and hyperbilirubinemia Stage IV pancreatic cancer with metastases to the liver and lungs Acute mild - mod hepatic encephalopathy Lactulose 3 times a day targeting 3-5 bowel movements Percutaneous biliary drain care Monitor vital signs and liver function Monitor ammonia level Aspiration precautions Fall precautions Neurochecks Admission to the ICU for close monitoring check abd US and paracentesis if evidence of ascites r/o SBP Leukocytosis with abd pain monitor for fevers follow up blood culture uriine unremarkable check abd US, for any ascites that needs paracentesis , to r/o SBP Chronic anemia secondary to chronic disease , monitor for any evidence of GI bleeding Current hemoglobin is higher than her baseline Continue to monitor hemoglobin closely Continue PPI by mouth Chronic back pain pain control continue home meds add IV opiods for breakthrough pain History of depression continue home meds Preformed a thorough record review from recent hospitalization patient was hospitalized and discharged a week ago for acute hepatic encephalopathy secondary to hyperbilirubinemia and hyperammonemia secondary to stage IV pancreatic cancer Surrogate decision-maker: Patient CODE STATUS: full code DVT prophylaxis: Heparin subcu 3 times a day Discussed with: Patient, ER, RN Anticipated discharge: 48-[address]: Pending clinical course A total of 60 minutes was spent on the care of this complex patient more than 50% of the time was spent in counseling and care coordination.
--- NOTE | 2018-07-14 08:52 | XR ---
EXAMINATION TYPE: XR chest 1V DATE OF EXAM: 07/14/2018 COMPARISON: 07/03/2018 HISTORY: Cough TECHNIQUE: Single frontal view of the chest is obtained. FINDINGS: Mediport catheter seen. There is diffuse bilateral infiltrates with small effusion. Curvat ure the spine with degenerative changes suggested. No pneumothorax. Heart size stable. IMPRESSION: Stable bilateral diffuse infiltrate
[2018-07-14] MEDS ORDERED: MORPHINE SULFATE ER 60 MG TABLET PO SCH (09:00)
[2018-07-14] MEDS ORDERED: PANTOPRAZOLE 40 MG/10 ML VIAL IV SCH (09:00)
--- NOTE | 2018-07-14 09:23 | P.CNPUL ---
History of Present Illness Consult date: 07/14/18 Requesting physician: Brennon Mackey Reason for consult: other Chief complaint: Altered mental status History of present illness: This is a 58-year-old white female patient with history of stage IV pancreatic cancer with metastasis to the liver and lungs status post Whipple procedure. She was recently hospitalized for hepatic encephalopathy related to hepatic encephalopathy, obstructive jaundice related to pancreatic tumor. She had a biliary drain inserted percutaneously during previous admission, she was started on Opdivo, she clinically improved, and was discharged home on 07/07/2018. During previous mission patient status was DNR/DNI, and the patient and her were considering hospice care. On 07/13/2018 patient was brought in to the hospital for evaluation of jaundice, and altered mental status. Most information is obtained from the chart, the patient is a poor historian, she was able to provide some information, he states she was having increased pain on both sides of her torso. She was reportedly having decreased appetite and worsening abdominal distention. No fevers, no nausea or vomiting, she had been on lactulose. She still has a right-sided percutaneous biliary drain which is draining moderate amount of bilious drainage. Chest x-ray showed stable bi lateral diffuse infiltrates seen on previous chest x-ray related to extensive metastasis to the lungs. Lab work showed a white blood cell count of 12.7, hemoglobin of 10.1, INR is 1.2, electrodes were within normal limits, BUN is 30 creatinine is 0.49. Total bilirubin was 14.8, AST was 100, ALT was 58, alkaline phosphatase was 695, ammonia level was 83, albumin level is 2.7, urinalysis showed trace protein, 3+ bilirubin, but negative for RBCs, WBCs, or leucocyte esterase. This morning patient is seen in the intensive care unit, she is awake and alert, she is able to provide some answers, but intermittently confused, does not appear to be in any acute distress. Jaundiced. Patient was given IV fluids and lactulose in the emergency department, she is passing bowel movements. Shortness of breath, no chest pain, no nausea, vomiting. Still complaining of abdominal discomfort on bilateral sides of abdomen, but no acute distress, she is on oral MS Contin, and IV Dilaudid for breakthrough pain. She is on a fentanyl patch 25 mics per hour. Review of Systems All systems: negative Constitutional: Reports lethargy, Reports malaise, Reports weakness, Denies chills, Denies fever Eyes: denies blurred vision, denies pain Ears, nose, mouth and throat: Denies headache, Denies sore throat Cardiovascular: Denies chest pain, Denies shortness of breath Respiratory: Denies cough Gastrointestinal: Reports abdominal pain, Reports bloating, Reports loss of appetite, Denies diarrhea, Denies nausea, Denies vomiting Genitourinary: Denies dysuria, Denies hematuria Musculoskeletal: Denies myalgias Integumentary: Denies pruritus, Denies rash Neurological: Denies numbness, Denies weakness Psychiatric: Denies anxiety, Denies depression Endocrine: Denies fatigue, Denies weight change Past Medical History Past Medical History: Cancer, GERD/Reflux, Liver Disease, Sleep Apnea/CPAP/BIPAP, Syncope, Thyroid Disorder Additional Past Medical History / Comment(s): Metastatic pancreatic cancer with mets to liver/lymphnodes-had surgery and chemo, neuropathy from chemo, past REGLA with CPap but not used since extreme weight loss, hypothyroid, kidney stones, murmur, History of Any Multi-Drug Resistant Organisms: None Reported Additional Past Surgical History / Comment(s): ERCP, pancreatic head mass aspiration, Whipple procedure 2017 at [facility], liver bx, breast implants,dental implants, port placement Past Anesthesia/Blood Transfusion Reactions: No Reported Reaction Past Psychological History: Anxiety, Depression Smoking Status: Never smoker - Past Family History Mother Family Medical History: Cancer Additional Family Medical History / Comment(s): from complications of stomach cancer Father Family Medical History: Cancer, Prostate Disorder Additional Family Medical History / Comment(s): prostate cancer. Medications and Allergies Home Medications Medication Instructions Recorded Confirmed Type ALPRAZolam [Xanax] 0.75 mg PO DAILY PRN 09/23/17 07/13/18 History Venlafaxine HCl [Effexor XR] 150 mg PO DAILY 09/23/17 07/13/18 History Lipase/Protease/Amylase [Humberto Johnson 4 cap PO ACHS 02/17/18 07/13/18 History 24,000 Units Capsule] Dronabinol [Marinol] 5 mg PO BID 06/30/18 07/13/18 History Lipase/Protease/Amylase [Humberto Johnson 2 cap PO DIRECTED PRN 06/30/18 07/13/18 History 24,000 Units Capsule] Ondansetron [Zofran ODT] 8 mg PO Q8H PRN 06/30/18 07/13/18 History Pantoprazole Sodium [Protonix] 40 mg PO DAILY 06/30/18 07/13/18 History Prochlorperazine [Compazine] 10 mg PO Q6H PRN 06/30/18 07/13/18 History fentaNYL 25MCG/HR PATCH [Duragesic 1 patch TRANSDERM Q72H 06/30/18 07/13/18 History 25MCG/HR] Morphine Sulfate ER [Ms Contin] 60 mg PO Q12HR 14 Days #28 tab 07/07/18 07/13/18 Rx Diphenoxylate HCl/Atropine 2 tab PO Q6HR 07/13/18 07/13/18 History [Lomotil 2.5-0.025 mg Tablet] Meloxicam [Mobic] 15 mg PO DAILY 07/13/18 07/13/18 History Vortioxetine Hydrobromide 20 mg PO DAILY 07/13/18 07/13/18 History [Trintellix] HYDROcodone/APAP 10-325MG [Arnold 1 tab PO Q6HR PRN 07/14/18 07/14/18 History 10-325] L.acidoph,Paracasei, B.lactis 1 cap PO DAILY 07/14/18 07/14/18 History [Probiotic] Lipase/Protease/Amylase [Zenpep Dr 1 cap PO DAILY 07/14/18 07/14/18 History 5,000 Unit Capsule] Allergies Allergy/AdvReac Type Severity Reaction Status Date / Time cephalexin [From Keflex] Allergy Anaphylaxis Verified 07/13/18 19:23 Iodinated Contrast- Oral and Allergy Rash/Hives Verified 07/13/18 19:23 IV Dye prednisone Allergy Anaphylaxis Verified 07/13/18 19:23 tuna oil AdvReac Mild Nausea & Verified 07/13/18 19:23 Vomiting Physical Exam Vitals: Vital Signs Temp Pulse Resp BP Pulse Ox 07/14/18 08:00 87 13 118/74 99 07/14/18 07:00 85 12 125/74 98 07/14/18 06:00 92 17 110/74 97 07/14/18 05:00 89 14 106/73 93 L 07/14/18 04:00 98.0 F 87 12 112/75 92 L 07/14/18 03:00 92 11 L 117/75 97 07/14/18 02:00 97 13 115/77 90 L 07/14/18 01:00 96 11 L 115/80 94 L 07/14/18 00:00 98.1 F 94 12 119/74 92 L 07/13/18 23:00 96 11 L 122/77 95 07/13/18 22:23 105 H 16 119/81 98 07/13/18 22:00 99 117/84 92 L 07/13/18 21:20 100 16 118/85 96 07/13/18 21:00 102 H 118/82 96 07/13/18 20:00 123/82 94 L 07/13/18 19:29 123/82 98 07/13/18 19:00 98.0 F 119 H 20 105/73 99 Intake and Output 07/13/18 07/14/18 07/14/18 22:59 06:59 14:59 Intake Total 800 100 Output Total 780 30 Balance 20 70 Intake: IV 800 100 Sodium Chloride 0.9% 1, 800 100 000 ml @ 100 mls/hr IV . Q10H ONE Rx#:[id number] Output: Urine 780 30 Other: Voiding Method Indwelling Catheter Weight 56.699 kg 57.4 kg GENERAL EXAM: Alert, oriented to person, jaundiced 58-year-old female, comfortable in no apparent distress. HEAD: Normocephalic/atraumatic. EYES: Normal reaction of pupils, equal size. Conjunctiva pink, sclera white. NOSE: Clear with pink turbinates. THROAT: No erythema or exudates. NECK: No masses, no JVD, no thyroid enlargement, no adenopathy. CHEST: No chest wall deformity. Symmetrical expansion. LUNGS: Equal air entry with a few scattered rhonchi, no wheezes no rales CVS: Regular rate and rhythm, normal S1 and S2, no gallops, no murmurs, no rubs ABDOMEN: Soft, nontender. No hepatosplenomegaly, normal bowel sounds, no guarding or rigidity. Right-sided percutaneous biliary drain present with bilious drainage in the bag EXTREMITIES: No clubbing, no edema, no cyanosis, 2+ pulses and upper and lower extremities. MUSCULOSKELETAL: Muscle strength and tone normal. SPINE: No scoliosis or deformity SKIN: No rashes CENTRAL NERVOUS SYSTEM: Alert and oriented -3. No focal deficits, tone is norm al in all 4 extremities. PSYCHIATRIC: Alert and oriented -3. Appropriate affect. Intact judgment and insight. Results - Laboratory Findings CBC and BMP: 07/14/18 04:30 07/14/18 04:30 PT/INR, D-dimer PT 12.2 sec (9.0-12.0) H 07/13/18 20:05 INR 1.2 (<1.2) H 07/13/18 20:05 Abnormal lab findings: Abnormal Labs 07/13/18 07/13/18 07/13/18 19:39 20:05 20:05 WBC 12.7 H RBC 3.49 L Hgb 10.1 L Hct 33.0 L MCHC 30.5 L RDW 21.8 H Neutrophils # 10.3 H PT INR Potassium Creatinine 0.49 L Glucose 146 H POC Glucose (mg/dL) 163 H Calcium Total Bilirubin 14.8 H AST 100 H ALT 58 H Alkaline Phosphatase 695 H Ammonia Albumin 2.7 L Urine Appearance Urine Protein Urine Bilirubin Hyaline Casts Urine Mucus 07/13/18 07/13/18 07/13/18 20:05 20:05 22:45 WBC RBC Hgb Hct MCHC RDW Neutrophils # PT 12.2 H INR 1.2 H Potassium Creatinine Glucose POC Glucose (mg/dL) 140 H Calcium Total Bilirubin AST ALT Alkaline Phosphatase Ammonia 83 H Albumin Urine Appearance Urine Protein Urine Bilirubin Hyaline Casts Urine Mucus 07/14/18 07/14/18 07/14/18 02:40 04:30 04:30 WBC RBC 3.10 L Hgb 9.0 L Hct 29.1 L MCHC RDW 21.6 H Neutrophils # PT INR Potassium 3.3 L Creatinine 0.44 L Glucose 122 H POC Glucose (mg/dL) Calcium 8.0 L Total Bilirubin AST ALT Alkaline Phosphatase Ammonia Albumin Urine Appearance Cloudy H Urine Protein Trace H Urine Bilirubin 3+ H Hyaline Casts 4 H Urine Mucus Few H - Diagnostic Findings Chest x-ray: report reviewed, image reviewed Assessment and Plan Plan: Assessment: #1. Altered mental status likely related to elevated ammonia, elevated serum bilirubin related to hepatic encephalopathy #2. Stage 4 metastatic pancreatic cancer with metastasis to the liver and lungs, status post Whipple procedure #3. Recent admission for altered mental status, hepatic encephalopathy, obstructive jaundice, status post percutaneous biliary drain placement #4. Abdominal pain, abdominal distention likely related to underlying metastatic pancreatic cancer #5. Hypothyroidism #6. History of obstructive sleep apnea, does not wear CPAP #7. History of nephrolithiasis #8. Lifetime nonsmoker #9. Anxiety/depression Plan: Continue with the lactulose, patient is awake and alert, able to answer simple questions, no acute distress, no difficulty breathing, no chest pain, still having some mild abdominal discomfort, continues on fentanyl patch, IV and oral medications. Hemodynamically stable, no difficulty breathing, from pulmonary/critical care perspective patient is stable to transfer out of the intensive care unit today to oncology floor. Consult medical oncology. We'll continue to follow, I performed a history & physical examination of the patient and discussed their management with my nurse practitioner, Loida Paul. I reviewed the nurse practitioner's note and agree with the documented findings and plan of care. Lung sounds are positive for a few scattered rhonchi. The findings and the impression was discussed with the patient. I attest to the documentation by the nurse practitioner. Time with Patient: Greater than 30
[2018-07-14] MEDS: HEPARIN SODIUM,PORCINE 5,000 UNIT/ML 1 ML VIAL SQ SCH ×3 (10:21→23:22)
--- NOTE | 2018-07-14 10:21 | P.PN ---
Subjective Progress Note Date: 07/14/18 Patient is alert but confused this morning. She is only oriented to herself. There is no acute events reported to me by nursing staff. Patient is getting lactulose around the clock targeting 3-5 bowel movement. Repeat ammonia level was not done this morning. Objective - Vital Signs Vital signs: Vital Signs Temp 98.0 F 07/14/18 04:00 Pulse 89 07/14/18 09:00 Resp 12 07/14/18 09:00 BP 108/68 07/14/18 09:00 Pulse Ox 96 07/14/18 09:00 Intake & Output 07/13/18 07/14/18 07/14/18 18:59 06:59 18:59 Intake Total 800 100 Output Total 780 30 Balance 20 70 Weight 57.4 kg Intake: IV 800 100 Sodium Chloride 0.9% 1, 800 100 000 ml @ 100 mls/hr IV . Q10H ONE Rx#:[id number] Output: Urine 780 30 Other: Voiding Method Indwelling Catheter - Exam General: The patient is awake and alert, she appeared jaundiced Eye: Icteric sclera bilaterally. Cardiovascular: Normal S1-S2, no S3-S4, no murmurs. Respiratory: Lungs clear to auscultation bilaterally Gastrointestinal: Abdomen is soft, nontender Musculoskeletal: There is no pedal edema. Skin: Skin is warm and dry - Labs CBC & Chem 7: 07/14/18 04:30 07/14/18 04:30 Labs: Abnormal Lab Results - Last 24 Hours (Table) 07/13/18 07/13/18 07/13/18 Range/Units 19:39 20:05 20:05 WBC 12.7 H (3.8-10.6) k/uL RBC 3.49 L (3.80-5.40) m/uL Hgb 10.1 L (11.4-16.0) gm/dL Hct 33.0 L (34.0-46.0) % MCHC 30.5 L (31.0-37.0) g/dL RDW 21.8 H (11.5-15.5) % Neutrophils # 10.3 H (1.3-7.7) k/uL PT (9.0-12.0) sec INR (<1.2) Potassium (3.5-5.1) mmol/L Creatinine 0.49 L (0.52-1.04) mg/dL Glucose 146 H (74-99) mg/dL POC Glucose (mg/dL) 163 H (75-99) mg/dL Calcium (8.4-10.2) mg/dL Total Bilirubin 14.8 H (0.2-1.3) mg/dL AST 100 H (14-36) U/L ALT 58 H (9-52) U/L Alkaline Phosphatase 695 H (38-126) U/L Ammonia (<30) umol/L Albumin 2.7 L (3.5-5.0) g/dL Urine Appearance (Clear) Urine Protein (Negative) Urine Bilirubin (Negative) Hyaline Casts (0-2) /lpf Urine Mucus (None) /hpf 07/13/18 07/13/18 07/13/18 Range/Units 20:05 20:05 22:45 WBC (3.8-10.6) k/uL RBC (3.80-5.40) m/uL Hgb (11.4-16.0) gm/dL Hct (34.0-46.0) % MCHC (31.0-37.0) g/dL RDW (11.5-15.5) % Neutrophils # (1.3-7.7) k/uL PT 12.2 H (9.0-12.0) sec INR 1.2 H (<1.2) Potassium (3.5-5.1) mmol/L Creatinine (0.52-1.04) mg/dL Glucose (74-99) mg/dL POC Glucose (mg/dL) 140 H (75-99) mg/dL Calcium (8.4-10.2) mg/dL Total Bilirubin (0.2-1.3) mg/dL AST (14-36) U/L ALT (9-52) U/L Alkaline Phosphatase (38-126) U/L Ammonia 83 H (<30) umol/L Albumin (3.5-5.0) g/dL Urine Appearance (Clear) Urine Protein (Negative) Urine Bilirubin (Negative) Hyaline Casts (0-2) /lpf Urine Mucus (None) /hpf 07/14/18 07/14/18 07/14/18 Range/Units 02:40 04:30 04:30 WBC (3.8-10.6) k/uL RBC 3.10 L (3.80-5.40) m/uL Hgb 9.0 L (11.4-16.0) gm/dL Hct 29.1 L (34.0-46.0) % MCHC (31.0-37.0) g/dL RDW 21.6 H (11.5-15.5) % Neutrophils # (1.3-7.7) k/uL PT (9.0-12.0) sec INR (<1.2) Potassium 3.3 L (3.5-5.1) mmol/L Creatinine 0.44 L (0.52-1.04) mg/dL Glucose 122 H (74-99) mg/dL POC Glucose (mg/dL) (75-99) mg/dL Calcium 8.0 L (8.4-10.2) mg/dL Total Bilirubin (0.2-1.3) mg/dL AST (14-36) U/L ALT (9-52) U/L Alkaline Phosphatase (38-126) U/L Ammonia (<30) umol/L Albumin (3.5-5.0) g/dL Urine Appearance Cloudy H (Clear) Urine Protein Trace H (Negative) Urine Bilirubin 3+ H (Negative) Hyaline Casts 4 H (0-2) /lpf Urine Mucus Few H (None) /hpf Assessment and Plan Assessment: 1. Stage IV pancreatic cancer with metastasis to the liver and lungs, awaiting oncology evaluation. Status post Whipple procedure. 2. Acute toxo metabolic encephalopathy secondary to hepatic encephalopathy and hyperbilirubinemia, continue lactulose 3 times a day targeting 3-5 bowel movements per day. Awaiting repeat ammonia level. Percutaneous biliary drain c are. Abdominal ultrasound to rule out ascites/SBP 3. Chronic anemia, hemoglobin stable 4. Chronic pain: Both chronic back pain and abdominal pain. Maintained on high dose of opiate. Continue pain management Today, I reviewed her medication list and lab work results. Awaiting repeat ammonia level. Continue lactulose. Appreciate unix consultant's recommendations. Repeat lab work in the morning. Stable to be transferred to a GPU
[2018-07-14] MEDS: LACTULOSE 20 GM/30 ML CUP PO SCH ×3 (10:25→20:50)
[2018-07-14] MEDS: MORPHINE SULFATE ER 60 MG TABLET PO SCH ×2 (10:25→20:46)
[2018-07-14] MEDS: DRONABINOL 2.5 MG CAP PO SCH ×2 (10:25→17:21)
[2018-07-14] MEDS: PANTOPRAZOLE 40 MG TABLET PO SCH (10:26)
[2018-07-14] MEDS: VORTIOXETINE HYDROBROMIDE 20 MG TABLET PO SCH (10:26)
[2018-07-14] MEDS: VENLAFAXINE HCL ER 150 MG CAP PO SCH (10:26)
--- NOTE | 2018-07-14 11:31 | US ---
EXAMINATION TYPE: US abdomen limited DATE OF EXAM: 07/14/2018 COMPARISON: NONE CLINICAL HISTORY: assess for peritoneal fluid and poss paracentesis. There is only a small amount of ascites visualized IMPRESSION: Small amount of ascites
[2018-07-14] MEDS: LIPASE PO SCH ×3 (13:45→20:47)
[2018-07-14] MEDS: PROTEASE PO SCH ×3 (13:45→20:47)
[2018-07-14] MEDS: AMYLASE PO SCH ×3 (13:45→20:47)
[2018-07-14] MEDS: LIPASE PO PRN (17:58)
[2018-07-14] MEDS: AMYLASE PO PRN (17:58)
[2018-07-14] MEDS: PROTEASE PO PRN (17:58)
[2018-07-15] MEDS: HYDROmorphone 1 MG/ML 1 ML SYRINGE IVP PRN ×2 (02:28→05:18)
[2018-07-15 08:39] LABS: Anisocytosis Moderate; Basophils % (A) 0 %; Eosinophils # (A) 0.1 k/uL (0-0.7); Eosinophils % (A) 0 %; HCT 28.7 % (34.0-46.0); HGB 8.8 gm/dL (11.4-16.0); Hypochromasia Marked; Lymphocytes # (A) 1.1 k/uL (1.0-4.8); Lymphocytes % (A) 8 %; MCHC 30.7 g/dL (31.0-37.0); MCV 94.6 fL (80.0-100.0); Macrocytosis Slight; Mean Platelet Volume 7.8; Monocytes # (A) 0.6 k/uL (0-1.0); Monocytes % (A) 4 %; Neutrophils # (A) 11.5 k/uL (1.3-7.7); Neutrophils % (A) 85 %; Platelet Count 261 k/uL (150-450); Poikilocytosis Slight; RBC 3.03 m/uL (3.80-5.40); WBC 13.5 k/uL (3.8-10.6)
[2018-07-15] MEDS: AMYLASE PO SCH ×4 (08:51→21:16)
[2018-07-15] MEDS: LIPASE PO SCH ×4 (08:51→21:16)
[2018-07-15] MEDS: PROTEASE PO SCH ×4 (08:51→21:16)
[2018-07-15] MEDS: DRONABINOL 2.5 MG CAP PO SCH ×2 (08:55→17:41)
[2018-07-15] MEDS: LACTULOSE 20 GM/30 ML CUP PO SCH ×3 (08:55→21:18)
[2018-07-15] MEDS: HEPARIN SODIUM,PORCINE 5,000 UNIT/ML 1 ML VIAL SQ SCH ×2 (08:55→17:42)
[2018-07-15] MEDS: MORPHINE SULFATE ER 60 MG TABLET PO SCH ×3 (08:55→21:57)
[2018-07-15 08:56] LABS: ALT 53 U/L (9-52); AST 79 U/L (14-36); Albumin 2.2 g/dL (3.5-5.0); Alkaline Phosphatase 490 U/L (38-126); Anion Gap 6 mmol/L; Blood Urea Nitrogen 10 mg/dL (7-17); Carbon Dioxide 26 mmol/L (22-30); Chloride 106 mmol/L (98-107); Glucose 111 mg/dL (74-99); Phosphorus 2.8 mg/dL (2.5-4.5); Potassium 3.7 mmol/L (3.5-5.1); Sodium 138 mmol/L (137-145); Total Bilirubin 13.6 mg/dL (0.2-1.3); Total Protein 5.6 g/dL (6.3-8.2)
[2018-07-15] MEDS: PANTOPRAZOLE 40 MG TABLET PO SCH (09:01)
[2018-07-15] MEDS ORDERED: SODIUM CHLORIDE 0.9% IV ONE (10:00)
[2018-07-15] MEDS: VORTIOXETINE HYDROBROMIDE 20 MG TABLET PO SCH (10:38)
[2018-07-15] MEDS: VENLAFAXINE HCL ER 150 MG CAP PO SCH (10:38)
--- NOTE | 2018-07-15 11:57 | XR ---
EXAMINATION TYPE: XR chest 1V DATE OF EXAM: 07/15/2018 COMPARISON: Prior chest x-ray 07/14/2018 HISTORY: Cough, metastatic disease TECHNIQUE: Single frontal view of the chest is obtained. FINDINGS: Findings are similar to prior exam. Lung volumes are low. Port-A-Cath is unchanged. No sandra dent pneumothorax. Bilateral pulmonary nodules are again present. Heart size is stable. Difficult to exclude basilar effusions. Biliary drainage tube is in place over the mid abdomen. Bilateral breast p rostheses are in place. IMPRESSION: Expiratory rotated exam. Findings compatible with patient's history of metastatic diseas e. Difficult to exclude superimposed pneumonia, effusion.
--- NOTE | 2018-07-15 14:02 | P.PN ---
Subjective Progress Note Date: 07/15/18 Patient mentation is slightly better compared to yesterday. Patient is alert but confused. She is only oriented to herself. There is no acute events reported to me by nursing staff. Patient is getting lactulose around the clock targeting 3-5 bowel movement per day. Objective - Vital Signs Vital signs: Vital Signs Temp 97.1 F L 07/15/18 11:30 Pulse 68 07/15/18 11:30 Resp 18 07/15/18 11:30 BP 110/71 07/15/18 11:30 Pulse Ox 96 07/15/18 11:30 Intake & Output 07/14/18 07/15/18 07/15/18 18:59 06:59 18:59 Intake Total 1350 Output Total 295 75 25 Balance 1055 -75 -25 Intake: IV 1300 Sodium Chloride 0.9% 1, 1300 000 ml @ 100 mls/hr IV . Q10H ONE Rx#:[id number] Oral 50 Output: Drainage 25 Left Upper Abdomen 25 Urine 295 Other 75 Other: Voiding Method Indwelling Catheter Diaper Indwelling Catheter # Bowel Movements 1 1 - Exam General: The patient is awake and alert, she appeared jaundiced Eye: Icteric sclera bilaterally. Cardiovascular: Normal S1-S2, no S3-S4, no murmurs. Respiratory: Lungs clear to auscultation bilaterally Gastrointestinal: Abdomen is soft, nontender Musculoskeletal: There is no pedal edema. Skin: Skin is warm and dry - Labs CBC & Chem 7: 07/15/18 08:17 07/15/18 08:17 Labs: Abnormal Lab Results - Last 24 Hours (Table) 07/15/18 07/15/18 Range/Units 08:17 08:17 WBC 13.5 H (3.8-10.6) k/uL RBC 3.03 L (3.80-5.40) m/uL Hgb 8.8 L (11.4-16.0) gm/dL Hct 28.7 L (34.0-46.0) % MCHC 30.7 L (31.0-37.0) g/dL RDW 21.0 H (11.5-15.5) % Neutrophils # 11.5 H (1.3-7.7) k/uL Creatinine 0.47 L (0.52-1.04) mg/dL Glucose 111 H (74-99) mg/dL Calcium 8.0 L (8.4-10.2) mg/dL Total Bilirubin 13.6 H (0.2-1.3) mg/dL AST 79 H (14-36) U/L ALT 53 H (9-52) U/L Alkaline Phosphatase 490 H (38-126) U/L Total Protein 5.6 L (6.3-8.2) g/dL Albumin 2.2 L (3.5-5.0) g/dL Microbiology - Last 24 Hours (Table) 07/14/18 02:40 Urine Culture - Final Urine,Catheterized 07/13/18 20:05 Blood Culture - Preliminary Blood No Growth after 24 hours Assessment and Plan Assessment: 1. Stage IV pancreatic cancer with metastasis to the liver and lungs. Status post Whipple procedure. Now followed by oncology. We should receive first dose of immunotherapy today. 2. Acute toxo metabolic encephalopathy secondary to hepatic encephalopathy and hyperbilirubinemia, ammonia level is back to normal today. continue lactulose 3 times a day targeting 3-5 bowel movements per day. Percutaneous biliary drain care. Abdominal ultrasound to rule out ascites/SBP 3. Chronic anemia, hemoglobin stable 4. Chronic pain: Both chronic back pain and abdominal pain. Maintained on high dose of opiate. Continue pain management Today, I reviewed her medication list and lab work results. Continue lactulose. Appreciate executive consultant's recommendations. Repeat lab work in the morning. Given no improvement in her mentation despite ammonia level is back to normal I would obtain an MRI of the brain for further evaluation
--- NOTE | 2018-07-15 15:03 | P.PN ---
Subjective Progress Note Date: 07/15/18 Principal diagnosis: Altered mental status, elevated ammonia, elevated serum bilirubin, chimeric encephalopathy This is a 58-year-old white female patient with history of stage IV pancreatic cancer with metastasis to the liver and lungs status post Whipple procedure. She was recently hospitalized for hepatic encephalopathy related to hepatic encephalopathy, obstructive jaundice related to pancreatic tumor. She had a biliary drain inserted percutaneously during previous admission, she was started on Opdivo, she clinically improved, and was discharged home on 07/07/2018. Jarrett uring previous mission patient status was DNR/DNI, and the patient and her were considering hospice care. On 07/13/2018 patient was brought in to the hospital for evaluation of jaundice, and altered mental status. Most information is obtained from the chart, the patient is a poor historian, she was able to provide some information, he states she was having increased pain on both sides of her torso. She was reportedly having decreased appetite and worsening abdominal distention. No fevers, no nausea or vomiting, she had been on lactulose. She still has a right-sided percutaneous biliary drain which is draining moderate amount of bilious drainage. Chest x-ray showed stable bilate ral diffuse infiltrates seen on previous chest x-ray related to extensive metastasis to the lungs. Lab work showed a white blood cell count of 12.7, hemoglobin of 10.1, INR is 1.2, electrodes were within normal limits, BUN is 30 creatinine is 0.49. Total bilirubin was 14.8, AST was 100, ALT was 58, alkaline phosphatase was 695, ammonia level was 83, albumin level is 2.7, urinalysis showed trace protein, 3+ bilirubin, but negative for RBCs, WBCs, or leucocyte esterase. This morning patient is seen in the intensive care unit, she is awake and alert, she is able to provide some answers, but intermittently confused, does not appear to be in any acute distress. Jaundiced. Patient was given IV fluids and lactulose in the emergency department, she is passing bowel movements. Shortness of breath, no chest pain, no nausea, vomiting. Still complaining of abdominal discomfort on bilateral sides of abdomen, but no acute distress, she is on oral MS Contin, and IV Dilaudid for breakthrough pain. She is on a fentanyl patch 25 mics per hour. On 07/15/2018 patient seen in follow-up on oncology floor, she is awake and alert, she states she still having some abdominal discomfort, but she states her pain is somewhat better controlled. No difficulty breathing, room air pulse ox is 96%, hemodynamically stable, lung sounds are clear. Percutaneous drain on the right side ending bilious drainage, ultrasound of the abdomen was completed and showed a small amount of ascites. She is receiving her lactulose, she is on pancreatic enzymes replacement. Oral intake remains poor. No acute events overnight. We spoke to medical oncology today, and the plan to continue with Opdivo in the outpatient setting, she receives it every 4 weeks, Objective - Vital Signs Vital signs: Vital Signs Temp 97.1 F L 07/15/18 11:30 Pulse 68 07/15/18 11:30 Resp 18 07/15/18 11:30 BP 110/71 07/15/18 11:30 Pulse Ox 96 07/15/18 11:30 Intake & Output 07/14/18 07/15/18 07/15/18 18:59 06:59 18:59 Intake Total 1350 Output Total 295 75 25 Balance 1055 -75 -25 Intake: IV 1300 Sodium Chloride 0.9% 1, 1300 000 ml @ 100 mls/hr IV . Q10H ONE Rx#:[id number] Oral 50 Output: Drainage 25 Left Upper Abdomen 25 Urine 295 Other 75 Other: Voiding Method Indwelling Catheter Diaper Indwelling Catheter # Bowel Movements 1 1 - Exam GENERAL EXAM: Alert, oriented to person, jaundiced 58-year-old female, comfortable in no apparent distress. HEAD: Normocephalic/atraumatic. EYES: Normal reaction of pupils, equal size. Conjunctiva pink, sclera white. NOSE: Clear with pink turbinates. THROAT: No erythema or exudates. NECK: No masses, no JVD, no thyroid enlargement, no adenopathy. CHEST: No chest wall deformity. Symmetrical expansion. LUNGS: Equal air entry with a few scattered rhonchi, no wheezes no rales CVS: Regular rate and rhythm, normal S1 and S2, no gallops, no murmurs, no rubs ABDOMEN: Soft, nontender. No hepatosplenomegaly, normal bowel sounds, no guarding or rigidity. Right-sided percutaneous biliary drain present with bilious drainage in the bag EXTREMITIES: No clubbing, no edema, no cyanosis, 2+ pulses and upper and lower extremities. MUSCULOSKELETAL: Muscle strength and tone normal. SPINE: No scoliosis or deformity SKIN: No rashes CENTRAL NERVOUS SYSTEM: Alert and oriented -3. No focal deficits, tone is normal in all 4 extremities. PSYCHIATRIC: Alert and oriented -3. Appropriate affect. Intact judgment and insight. - Labs CBC & Chem 7: 07/15/18 08:17 07/15/18 08:17 Labs: Abnormal Lab Results - Last 24 Hours (Table) 07/15/18 07/15/18 Range/Units 08:17 08:17 WBC 13.5 H (3.8-10.6) k/uL RBC 3.03 L (3.80-5.40) m/uL Hgb 8.8 L (11.4-16.0) gm/dL Hct 28.7 L (34.0-46.0) % MCHC 30.7 L (31.0-37.0) g/dL RDW 21.0 H (11.5-15.5) % Neutrophils # 11.5 H (1.3-7.7) k/uL Creatinine 0.47 L (0.52-1.04) mg/dL Glucose 111 H (74-99) mg/dL Calcium 8.0 L (8.4-10.2) mg/dL Total Bilirubin 13.6 H (0.2-1.3) mg/dL AST 79 H (14-36) U/L ALT 53 H (9-52) U/L Alkaline Phosphatase 490 H (38-126) U/L Total Protein 5.6 L (6.3-8.2) g/dL Albumin 2.2 L (3.5-5.0) g/dL Microbiology - Last 24 Hours (Table) 07/14/18 02:40 Urine Culture - Final Urine,Catheterized 07/13/18 20:05 Blood Culture - Preliminary Blood No Growth after 24 hours Assessment and Plan Plan: Assessment: #1. Altered mental status likely related to elevated ammonia, elevated serum bilirubin related to hepatic encephalopathy #2. Stage 4 metastatic pancreatic cancer with metastasis to the liver and lungs, status post Whipple procedure #3. Recent admission for altered mental status, hepatic encephalopathy, obstructive jaundice, status post percutaneous biliary drain placement #4. Abdominal pain, abdominal distention likely related to underlying metastatic pancreatic cancer #5. Hypothyroidism #6. History of obstructive sleep apnea, does not wear CPAP #7. History of nephrolithiasis #8. Lifetime nonsmoker #9. Anxiety/depression Plan: We'll continue supportive treatment, no acute events overnight, repeat ammonia level came back less than 9, patient still having some persistent abdominal pain, although her pain is better controlled. Spoke to medical oncology today, and at this time, they will follow on an outpatient basis and continue with Opdivo every 4 weeks. From pulmonary/critical care standpoint patient is stable, overall prognosis is poor. We will follow on as-needed basis I performed a history & physical examination of the patient and discussed their management with my nurse practitioner, Loida Paul. I reviewed the nurse practitioner's note and agree with the documented findings and plan of care. Lung sounds are positive for a few scattered rhonchi. The findings and the impression was discussed with the patient. I attest to the documentation by the nurse practitioner. Time with Patient: Less than 30
--- NOTE | 2018-07-15 16:30 | P.CONS ---
History of Present Illness - Reason for Consult Consult date: 07/15/18 metastatic pancreatic adenocarcinoma Requesting physician: Loida Paul - Chief Complaint hepatic encephalopathy secondary to malignancy - History of Present Illness Pt is a very pleasant female pt of Dr. 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 11/21/15 she had ERCP with CBD stent, a 3.3 cm pancreatic head mass was biopsied revealing adenocarcinoma. She was evaluated at [facility], thought to have a borderline resectable disease, massiel-adjuvant chemotherapy advised, started FOLFIRINOX with Dr. Ivey at [place] [facility] in [place], completed 4 cycles. Treatment f/u CT showed lesion improved. Dr. Gregorio at [facility] performed WHIPPLE on 04/17/2016. Final path showed a 1.9 cm adenocarcinoma with mets to 07/07 LN, margins were negative. She started adjuvant chemo and radiation, completed August 2016 with unremarkable f/u until May 2018. 05/27/18 she was seen for c/o increasing abdominal/back pain, CT unfortunately showed progression of disease. Dr. Moulton discussed 3rd line treatment, but before pt could decide she became more jaundice with significant bilirubin increase. Nivolumab was agreed upon, 1st dose was given inpatient 2 weeks ago when pt was admitted. At that time she more weak and confused, bilirubin was 19. Repeat CT CAP on that admit showed further progression of her known malignancy and metastatic disease. She is currently admitted with hepatic encephalopathy, weakness and poor oral intake. She is mildly confused, chart reviewed. Pt has done ok with supportive care, more alert today, little more clear in thinking, she is going to get her 2nd dose of nivolumab today. Review of Systems ROS unobtainable: due to mental status Past Medical History Past Medical History: Cancer, GERD/Reflux, Liver Disease, Sleep Apnea/CPAP/BIPAP, Syncope, Thyroid Disorder Additional Past Medical History / Comment(s): Metastatic pancreatic cancer with mets to liver/lymphnodes-had surgery and chemo, neuropathy from chemo, past REGLA with CPap but not used since extreme weight loss, hypothyroid, kidney stones, murmur, History of Any Multi-Drug Resistant Organisms: None Reported Additional Past Surgical History / Comment(s): ERCP, pancreatic head mass aspiration, Whipple procedure 2017 at [facility], liver bx, breast implants,dental implants, port placement Past Anesthesia/Blood Transfusion Reactions: No Reported Reaction Past Psychological History: Anxiety, Depression Smoking Status: Never smoker - Past Family History Mother Family Medical History: Cancer Additional Family Medical History / Comment(s): from complications of stomach cancer Father Family Medical History: Cancer, Prostate Disorder Additional Family Medical History / Comment(s): prostate cancer. Medications and Allergies Home Medications Medication Instructions Recorded Confirmed Type ALPRAZolam [Xanax] 0.75 mg PO DAILY PRN 09/23/17 07/13/18 History Venlafaxine HCl [Effexor XR] 150 mg PO DAILY 09/23/17 07/13/18 History Lipase/Protease/Amylase [Humberto Johnson 4 cap PO ACHS 02/17/18 07/13/18 History 24,000 Units Capsule] Dronabinol [Marinol] 5 mg PO BID 06/30/18 07/13/18 History Lipase/Protease/Amylase [Humberto Johnson 2 cap PO DIRECTED PRN 06/30/18 07/13/18 History 24,000 Units Capsule] Ondansetron [Zofran ODT] 8 mg PO Q8H PRN 06/30/18 07/13/18 History Pantoprazole Sodium [Protonix] 40 mg PO DAILY 06/30/18 07/13/18 History Prochlorperazine [Compazine] 10 mg PO Q6H PRN 06/30/18 07/13/18 History fentaNYL 25MCG/HR PATCH [Duragesic 1 patch TRANSDERM Q72H 06/30/18 07/13/18 History 25MCG/HR] Morphine Sulfate ER [Ms Contin] 60 mg PO Q12HR 14 Days #28 tab 07/07/18 07/13/18 Rx Diphenoxylate HCl/Atropine 2 tab PO Q6HR 07/13/18 07/13/18 History [Lomotil 2.5-0.025 mg Tablet] Meloxicam [Mobic] 15 mg PO DAILY 07/13/18 07/13/18 History Vortioxetine Hydrobromide 20 mg PO DAILY 07/13/18 07/13/18 History [Trintellix] HYDROcodone/APAP 10-325MG [[place] 1 tab PO Q6HR PRN 07/14/18 07/14/18 History 10-325] L.acidoph,Paracasei, B.lactis 1 cap PO DAILY 07/14/18 07/14/18 History [Probiotic] Lipase/Protease/Amylase [Addie Johnson 1 cap PO DAILY 07/14/18 07/14/18 History 5,000 Unit Capsule] Allergies Allergy/AdvReac Type Severity Reaction Status Date / Time cephalexin [From Keflex] Allergy Anaphylaxis Verified 07/13/18 19:23 Iodinated Contrast- Oral and Allergy Rash/Hives Verified 07/13/18 19:23 IV Dye prednisone Allergy Anaphylaxis Verified 07/13/18 19:23 tuna oil AdvReac Mild Nausea & Verified 07/13/18 19:23 Vomiting Physical Exam Vitals: Vital Signs Temp Pulse Pulse Resp BP BP Pulse Ox 07/15/18 11:30 97.1 F L 68 18 110/71 96 07/15/18 08:00 57 L 07/15/18 05:38 97.9 F 57 L 16 99/61 96 07/14/18 22:34 99.1 F 96 15 126/77 100 07/14/18 17:00 97 13 113/73 95 Intake and Output 07/15/18 07/15/18 07/15/18 06:59 14:59 22:59 Output Total 75 25 Balance -75 -25 Output: Drainage 25 Left Upper Abdomen 25 Other 75 Other: Voiding Method Indwelling Catheter # Bowel Movements 1 - Constitutional General appearance: cooperative, no acute distress, thin - EENT Eyes: EOMI, scleral icterus ENT: hearing grossly normal - Neck Neck: no lymphadenopathy - Respiratory Respiratory: bilateral: CTA - Cardiovascular Rhythm: regular Heart sounds: normal: S1, S2 Abnormal Heart Sounds: systolic murmur, no diastolic murmur, no rub, no S3 Gallop, no S4 Gallop, no click, no other leg Peripheral Edema: bilateral: Trace - Gastrointestinal Upper quadrant firm to palpation, minimal distention, bowel sounds are distant - Integumentary Integumentary: jaundiced - Musculoskeletal Musculoskeletal: generalized weakness - Psychiatric Patient is alert when I enter room, she does drift off to sleep rather easily. She is aware of bodily functions. She questioned being given nivolumab. We reviewed that she is getting the medication for treatment of cancer-she did know that opdivo is cancer treatment-she said it was okay that we could go ahead and give it. Results CBC & Chem 7: 07/15/18 08:17 07/15/18 08:17 Labs: Abnormal Lab Results - Last 24 Hours (Table) 07/15/18 07/15/18 Range/Units 08:17 08:17 WBC 13.5 H (3.8-10.6) k/uL RBC 3.03 L (3.80-5.40) m/uL Hgb 8.8 L (11.4-16.0) gm/dL Hct 28.7 L (34.0-46.0) % MCHC 30.7 L (31.0-37.0) g/dL RDW 21.0 H (11.5-15.5) % Neutrophils # 11.5 H (1.3-7.7) k/uL Creatinine 0.47 L (0.52-1.04) mg/dL Glucose 111 H (74-99) mg/dL Calcium 8.0 L (8.4-10.2) mg/dL Total Bilirubin 13.6 H (0.2-1.3) mg/dL AST 79 H (14-36) U/L ALT 53 H (9-52) U/L Alkaline Phosphatase 490 H (38-126) U/L Total Protein 5.6 L (6.3-8.2) g/dL Albumin 2.2 L (3.5-5.0) g/dL Microbiology - Last 24 Hours (Table) 07/14/18 02:40 Urine Culture - Final Urine,Catheterized 07/13/18 20:05 Blood Culture - Preliminary Blood No Growth after 24 hours Assessment and Plan (1) Pancreatic cancer Narrative/Plan: Patient is receiving second dose of nivolumab, compassionate, use for metastatic pancreatic cancer. She seemed to tolerate the first dose rather well. We will continue to follow patient closely after her dose Current Visit: Yes Status: Acute Priority: High Code(s): C25.9 - MALIGNANT NEOPLASM OF PANCREAS, UNSPECIFIED SNOMED Code(s): 274064990 (2) Hepatic encephalopathy Narrative/Plan: Improved post lactulose, ammonia level less than 9 today. Patient states she would like to stop having some much diarrhea. Lactulose dose can be adjusted based on ammonia level, will defer to Attending Current Visit: Yes Status: Chronic Priority: Medium Code(s): K72.90 - HEPATIC FAILURE, UNSPECIFIED WITHOUT COMA SNOMED Code(s): 87671592 (3) Jaundice Current Visit: Yes Status: Chronic Priority: Medium Code(s): R17 - UNSPECIFIED JAUNDICE SNOMED Code(s): 15528338 (4) Transaminitis Narrative/Plan: Secondary to metastatic disease in the liver. LFTs are stable, bilirubin slightly down from yesterday. Current Visit: Yes Status: Chronic Priority: High Code(s): R74.0 - NONSPEC ELEV OF LEVELS OF TRANSAMNS & LACTIC ACID DEHYDRGNSE SNOMED Code(s): 712901874 (5) Diarrhea Narrative/Plan: Secondary to lactulose to decrease ammonia levels Current Visit: Yes Status: Acute Priority: High Code(s): R19.7 - DIARRHEA, UNSPECIFIED SNOMED Code(s): 00330992
--- NOTE | 2018-07-15 21:16 | P.CONS ---
History of Present Illness - Reason for Consult Consult date: 07/15/18 Confusion, enzyme replacement therapy Requesting physician: Brennon Mackey - Chief Complaint Altered mentation - History of Present Illness 58-year-old female with a medical history significant for stage IV pancreatic cancer with metastases to the liver who is status post Whipple procedure and presented to the hospital due to altered mental status and increased jaundice. The patient was seen for elevation in her liver enzymes on the last hospitalization, and at that time it was unclear if the elevation in liver enzymes were secondary to biliary obstruction or do to intrahepatic metastases. The patient did undergo successful placement of a percutaneous biliary drain with the interventional radiology service due to her Whipple procedure. After discharge the patient was noted to have decreased appetite and worsening abdominal distention as well as confusion and was brought back to the hospital for further evaluation. The patient was found to have elevation in her ammonia after presentation to the hospital and has been started on lactulose therapy which she is receiving 3 times a day. The patient is having good stool output and her last ammonia level was found to be less than 9. She does continue to be confused however. Other laboratory evaluation was significant for a WBC count 13.5, hemoglobin 8.8, platelet count 261, total bilirubin 13.6, alkaline phosphatase 490, AST 79, and ALT 53. Review of Systems REVIEW OF SYSTEMS: CONSTITUTIONAL: Denies any fevers, chills, but reports of decreased oral intake and weight loss. CARDIOVASCULAR: Denies any chest pain, palpitations high or low blood pressures RESPIRATORY: Denies any shortness of breath, hemoptysis or cough. GENITOURINARY: No dysuria or hematuria, but dark urine urine noted. MUSCULOSKELETAL: No weakness reported. SKIN: Denies any new rashes or lesions, but worsening jaundice noted. PSYCHIATRIC: Denies any depression or anxiety. NEUROLOGY: Denies headache, denies any new focal deficits. EARS/NOSE/THROAT: No recent hearing change, congestion, nasal discharge or sore throat. EYES: No pain in eyes, discharge or change in vision. GASTROINTESTINAL: As per HPI. Past Medical History Past Medical History: Cancer, GERD/Reflux, Liver Disease, Sleep Apnea/CPAP/BIPAP, Syncope, Thyroid Disorder Additional Past Medical History / Comment(s): Metastatic pancreatic cancer with mets to liver/lymphnodes-had surgery and chemo, neuropathy from chemo, past REGLA with CPap but not used since extreme weight loss, hypothyroid, kidney stones, murmur, History of Any Multi-Drug Resistant Organisms: None Reported Additional Past Surgical History / Comment(s): ERCP, pancreatic head mass aspiration, [facility] , liver bx, breast implants,dental implants, port placement Past Anesthesia/Blood Transfusion Reactions: No Reported Reaction Past Psychological History: Anxiety, Depression Smoking Status: Never smoker - Past Family History Mother Family Medical History: Cancer Additional Family Medical History / Comment(s): from complications of stomach cancer Father Family Medical History: Cancer, Prostate Disorder Additional Family Medical History / Comment(s): prostate cancer. Medications and Allergies Home Medications Medication Instructions Recorded Confirmed Type ALPRAZolam [Xanax] 0.75 mg PO DAILY PRN 09/23/17 07/13/18 History Venlafaxine HCl [Effexor XR] 150 mg PO DAILY 09/23/17 07/13/18 History Lipase/Protease/Amylase [Humberto Johnson 4 cap PO ACHS 02/17/18 07/13/18 History 24,000 Units Capsule] Dronabinol [Marinol] 5 mg PO BID 06/30/18 07/13/18 History Lipase/Protease/Amylase [Humberto Johnson 2 cap PO DIRECTED PRN 06/30/18 07/13/18 History 24,000 Units Capsule] Ondansetron [Zofran ODT] 8 mg PO Q8H PRN 06/30/18 07/13/18 History Pantoprazole Sodium [Protonix] 40 mg PO DAILY 06/30/18 07/13/18 History Prochlorperazine [Compazine] 10 mg PO Q6H PRN 06/30/18 07/13/18 History fentaNYL 25MCG/HR PATCH [Duragesic 1 patch TRANSDERM Q72H 06/30/18 07/13/18 History 25MCG/HR] Morphine Sulfate ER [Ms Contin] 60 mg PO Q12HR 14 Days #28 tab 07/07/18 07/13/18 Rx Diphenoxylate HCl/Atropine 2 tab PO Q6HR 07/13/18 07/13/18 History [Lomotil 2.5-0.025 mg Tablet] Meloxicam [Mobic] 15 mg PO DAILY 07/13/18 07/13/18 History Vortioxetine Hydrobromide 20 mg PO DAILY 07/13/18 07/13/18 History [Trintellix] HYDROcodone/APAP 10-325MG [[place] 1 tab PO Q6HR PRN 07/14/18 07/14/18 History 10-325] L.acidoph,Paracasei, B.lactis 1 cap PO DAILY 07/14/18 07/14/18 History [Probiotic] Lipase/Protease/Amylase [Zenpep Dr 1 cap PO DAILY 07/14/18 07/14/18 History 5,000 Unit Capsule] Allergies Allergy/AdvReac Type Severity Reaction Status Date / Time cephalexin [From Keflex] Allergy Anaphylaxis Verified 07/13/18 19:23 Iodinated Contrast- Oral and Allergy Rash/Hives Verified 07/13/18 19:23 IV Dye prednisone Allergy Anaphylaxis Verified 07/13/18 19:23 tuna oil AdvReac Mild Nausea & Verified 07/13/18 19:23 Vomiting Physical Exam Vitals: Vital Signs Temp Pulse Resp BP Pulse Ox 07/15/18 11:30 97.1 F L 68 18 110/71 96 07/15/18 08:00 57 L 07/15/18 05:38 97.9 F 57 L 16 99/61 96 07/14/18 22:34 99.1 F 96 15 126/77 100 Intake and Output 07/15/18 07/15/18 07/15/18 06:59 14:59 22:59 Output Total 75 25 Balance -75 -25 Output: Drainage 25 Left Upper Abdomen 25 Other 75 Other: Voiding Method Indwelling Catheter Indwelling Catheter # Bowel Movements 1 4 On physical examination, patient appears comfortable in no apparent distress. HEAD: Normocephalic, atraumatic. EYES: Bilateral scleral icterus noted. No conjunctival injection. MOUTH: No lesions, tongue midline. NECK: Trachea midline, no gross abnormalities. CHEST: Clear to auscultation with no wheezing or rhonchi appreciated. HEART: Regular rate and rhythm. ABDOMEN: Soft, with biliary drain with good output noted. Bowel sounds are positive. No organomegaly. No guarding or rigidity. EXTREMITIES: No pedal edema. SKIN: No rashes, no jaundice. NEUROLOGIC: Alert and oriented to person but somewhat confused. No focal deficits. Results CBC & Chem 7: 07/15/18 08:17 07/15/18 08:17 Labs: Abnormal Lab Results - Last 24 Hours (Table) 07/15/18 07/15/18 Range/Units 08:17 08:17 WBC 13.5 H (3.8-10.6) k/uL RBC 3.03 L (3.80-5.40) m/uL Hgb 8.8 L (11.4-16.0) gm/dL Hct 28.7 L (34.0-46.0) % MCHC 30.7 L (31.0-37.0) g/dL RDW 21.0 H (11.5-15.5) % Neutrophils # 11.5 H (1.3-7.7) k/uL Creatinine 0.47 L (0.52-1.04) mg/dL Glucose 111 H (74-99) mg/dL Calcium 8.0 L (8.4-10.2) mg/dL Total Bilirubin 13.6 H (0.2-1.3) mg/dL AST 79 H (14-36) U/L ALT 53 H (9-52) U/L Alkaline Phosphatase 490 H (38-126) U/L Total Protein 5.6 L (6.3-8.2) g/dL Albumin 2.2 L (3.5-5.0) g/dL Microbiology - Last 24 Hours (Table) 07/14/18 02:40 Urine Culture - Final Urine,Catheterized 07/13/18 20:05 Blood Culture - Preliminary Blood No Growth after 24 hours Chest x-ray: report reviewed (Findings on chest x-ray compatible with known history of pancreatic cancer) Assessment and Plan (1) Altered mental status Narrative/Plan: Likely multifactorial with the patient presenting with confusion and increased ammonia, which has subsequently improved on lactulose therapy, likely also secondary to narcotic use and decreased metabolism in the setting of metastatic disease to the liver. Current Visit: Yes Status: Acute Code(s): R41.82 - ALTERED MENTAL STATUS, U NSPECIFIED SNOMED Code(s): 702040224 (2) Hyperammonemia Current Visit: Yes Status: Acute Code(s): E72.20 - DISORDER OF UREA CYCLE METABOLISM, UNSPECIFIED SNOMED Code(s): 0015143 (3) Pancreatic cancer Current Visit: Yes Status: Acute Priority: High Code(s): C25.9 - MALIGNANT NEOPLASM OF PANCREAS, UNSPECIFIED SNOMED Code(s): 579475865 (4) Jaundice Current Visit: Yes Status: Chronic Priority: Medium Code(s): R17 - UNSPECIFIED JAUNDICE SNOMED Code(s): 43507910 (5) Transaminitis Narrative/Plan: Elevation in liver enzymes in both a cholestatic and hepatocellular pattern, likely secondary to metastatic cancer to the liver with slight improvement in bilirubin after external drain placement, however bilirubin likely remains elevated due to parenchymal disease. Current Visit: Yes Status: Chronic Priority: High Code(s): R74.0 - NONSPEC ELEV OF LEVELS OF TRANSAMNS & LACTIC ACID DEHYDRGNSE SNOMED Code(s): 659259339 Plan: Supportive care Okay for diet Continue Creon replacement therapy, recommended dosage is at least 30,000 IUs taken with meals and titrated to symptoms, with the patient currently on an appropriate dose Continue lactulose with titration to 3-4 bowel movements daily, we will add Xifaxan therapy in case of residual effects although ammonia level has normalized Recommend judicious use of narcotics and anxiolytics as metabolism is affected by metastatic disease to the liver and may be contributing to the patient's con fusion Thank you for allowing us to participate in the care of the patient we will continue to follow
[2018-07-15] MEDS: MONTELUKAST 10 MG TAB PO SCH (21:17)
[2018-07-15] MEDS: RIFAXIMIN 550 MG TABLET PO SCH ×2 (21:51→21:55)
[2018-07-16] MEDS: HEPARIN SODIUM,PORCINE 5,000 UNIT/ML 1 ML VIAL SQ SCH ×3 (01:19→16:58)
[2018-07-16] MEDS: MORPHINE SULFATE ER 60 MG TABLET PO SCH ×2 (05:41→22:32)
[2018-07-16 08:22] LABS: Anisocytosis Moderate; Basophils % (A) 0 %; Eosinophils # (A) 0.1 k/uL (0-0.7); Eosinophils % (A) 1 %; HCT 27.6 % (34.0-46.0); HGB 8.4 gm/dL (11.4-16.0); Hypochromasia Marked; Lymphocytes # (A) 1.2 k/uL (1.0-4.8); Lymphocytes % (A) 9 %; MCH 28.8 pg (25.0-35.0); MCHC 30.5 g/dL (31.0-37.0); MCV 94.4 fL (80.0-100.0); Macrocytosis Slight; Mean Platelet Volume 7.6; Monocytes # (A) 0.6 k/uL (0-1.0); Monocytes % (A) 5 %; Neutrophils # (A) 11.2 k/uL (1.3-7.7); Neutrophils % (A) 84 %; Platelet Count 271 k/uL (150-450); Poikilocytosis Slight; RBC 2.93 m/uL (3.80-5.40); RDW 20.5 % (11.5-15.5); WBC 13.3 k/uL (3.8-10.6)
[2018-07-16 08:30] LABS: ALT 55 U/L (9-52); AST 80 U/L (14-36); Albumin 2.3 g/dL (3.5-5.0); Alkaline Phosphatase 458 U/L (38-126); Anion Gap 6 mmol/L; Blood Urea Nitrogen 12 mg/dL (7-17); Calcium 8.1 mg/dL (8.4-10.2); Carbon Dioxide 25 mmol/L (22-30); Chloride 109 mmol/L (98-107); Glucose 143 mg/dL (74-99); Potassium 3.6 mmol/L (3.5-5.1); Sodium 140 mmol/L (137-145); Total Bilirubin 13.4 mg/dL (0.2-1.3); Total Protein 5.8 g/dL (6.3-8.2)
[2018-07-16] MEDS: LIPASE PO SCH ×4 (08:58→18:49)
[2018-07-16] MEDS: PROTEASE PO SCH ×4 (08:58→18:49)
[2018-07-16] MEDS: DRONABINOL 2.5 MG CAP PO SCH ×3 (08:58→16:58)
[2018-07-16] MEDS: AMYLASE PO SCH ×4 (08:58→18:49)
[2018-07-16] MEDS: VORTIOXETINE HYDROBROMIDE 20 MG TABLET PO SCH (09:07)
[2018-07-16] MEDS: VENLAFAXINE HCL ER 150 MG CAP PO SCH (09:07)
[2018-07-16] MEDS: PANTOPRAZOLE 40 MG TABLET PO SCH (09:07)
[2018-07-16] MEDS: RIFAXIMIN 550 MG TABLET PO SCH ×2 (09:07→22:31)
[2018-07-16] MEDS: LACTULOSE 20 GM/30 ML CUP PO SCH ×3 (09:07→22:31)
--- NOTE | 2018-07-16 11:35 | P.PN ---
Subjective Progress Note Date: 07/16/18 Patient's overall condition is not changed compared to yesterday. She is lethargic but easily arousable. She is unable to conduct any meaningful conversation. Objective - Vital Signs Vital signs: Vital Signs Temp 98.1 F 07/16/18 06:00 Pulse 99 07/16/18 06:00 Resp 16 07/16/18 06:00 BP 118/68 07/16/18 06:00 Pulse Ox 94 L 07/16/18 06:00 Intake & Output 07/15/18 07/16/18 07/16/18 18:59 06:59 18:59 Intake Total 1050 Output Total 25 841 Balance -25 209 Intake: Intake, IV Titration 300 Amount Sodium Chloride 0.9% 100 300 ml @ 248 mls/hr IV .Q30M ONE with Patients Own Med 1 each Rx#:[id number] Oral 750 Output: Drainage 25 41 Left Upper Abdomen 25 41 Urine 800 Uretheral (Saini) 800 Other: Voiding Method Indwelling Catheter Indwelling Catheter Indwelling Catheter # Bowel Movements 4 - Exam General: The patient is awake and alert, she appeared jaundiced Eye: Icteric sclera bilaterally. Cardiovascular: Normal S1-S2, no S3-S4, no murmurs. Respiratory: Lungs clear to auscultation bilaterally Gastrointestinal: Abdomen is soft, nontender Musculoskeletal: There is no pedal edema. Skin: Skin is warm and dry - Labs CBC & Chem 7: 07/16/18 08:01 07/16/18 08:01 Labs: Abnormal Lab Results - Last 24 Hours (Table) 07/16/18 07/16/18 07/16/18 Range/Units 08:01 08:01 08:01 WBC 13.3 H (3.8-10.6) k/uL RBC 2.93 L (3.80-5.40) m/uL Hgb 8.4 L (11.4-16.0) gm/dL Hct 27.6 L (34.0-46.0) % MCHC 30.5 L (31.0-37.0) g/dL RDW 20.5 H (11.5-15.5) % Neutrophils # 11.2 H (1.3-7.7) k/uL Chloride 109 H (98-107) mmol/L Creatinine 0.41 L (0.52-1.04) mg/dL Glucose 143 H (74-99) mg/dL Calcium 8.1 L (8.4-10.2) mg/dL Total Bilirubin 13.4 H (0.2-1.3) mg/dL AST 80 H (14-36) U/L ALT 55 H (9-52) U/L Alkaline Phosphatase 458 H (38-126) U/L Ammonia 47 H (<30) umol/L Total Protein 5.8 L (6.3-8.2) g/dL Albumin 2.3 L (3.5-5.0) g/dL Microbiology - Last 24 Hours (Table) 07/13/18 20:05 Blood Culture - Preliminary Blood No Growth after 48 hours 07/14/18 02:40 Urine Culture - Final Urine,Catheterized Assessment and Plan Assessment: 1. Stage IV pancreatic cancer with metastasis to the liver and lungs. Status post Whipple procedure. Now followed by oncology. Currently on immunotherapy. 2. Acute toxo metabolic encephalopathy secondary to hepatic encephalopathy and hyperbilirubinemia, ammonia level fluctuating. Increase lactulose dose to 4 times a day targeting 3-5 bowel movements per day. Rifaximin twice daily. Percutaneous biliary drain care. Abdominal ultrasound showed minimal ascites to be getting 3. Chronic anemia, hemoglobin stable 4. Chronic pain: Both chronic back pain and abdominal pain. Maintained on high dose of opiate. Continue pain management Today, I reviewed her medication list and lab work results. Continue lactulose. Appreciate it architecture consultant's recommendations. Repeat lab work in the morning. I had a prolonged discussion with her over the phone yesterday. He is realistic and is willing to pursue comfort care if there is no benefit from current immunotherapy. I also discussed with the oncologist today who is willing to talk to Dr. Moulton to determine if immunotherapy with still be offered to this patient given her very poor and guarded prognosis and current level of hyperbilirubinemia. We will touch base today with her again regarding goals of care.
[2018-07-16] MEDS ORDERED: LACTULOSE 20 GM/30 ML CUP PO SCH (13:00)
--- NOTE | 2018-07-16 19:12 | P.PN ---
Subjective Progress Note Date: 07/16/18 Principal diagnosis: Metastatic pancreatic cancer, encephalopathy Patient lying in bed. No acute complaints or events overnight reported by the nursing staff. Objective - Vital Signs Vital signs: Vital Signs Temp 98.9 F 07/16/18 11:45 Pulse 84 07/16/18 11:45 Resp 18 07/16/18 11:45 BP 116/69 07/16/18 11:45 Pulse Ox 96 07/16/18 11:45 Intake & Output 07/16/18 07/16/18 07/17/18 06:59 18:59 06:59 Intake Total 1050 Output Total 841 370 Balance 209 -370 Intake: Intake, IV Titration 300 Amount Sodium Chloride 0.9% 100 300 ml @ 248 mls/hr IV .Q30M ONE with Patients Own Med 1 each Rx#:[id number] Oral 750 Output: Drainage 41 20 Left Upper Abdomen 41 20 Urine 800 350 Uretheral (Saini) 800 Other: Voiding Method Indwelling Catheter Indwelling Catheter # Bowel Movements 2 - Exam On physical examination, patient appears comfortable in no apparent distress. HEAD: Normocephalic, atraumatic. EYES: Icterus. No conjunctival injection. MOUTH: No lesions, tongue midline. NECK: Trachea midline, no gross abnormalities. CHEST: Clear to auscultation with no wheezing or rhonchi appreciated. HEART: Regular rate and rhythm. ABDOMEN: Soft. Bowel sounds are positive. No organomegaly. No guarding or rigidity. EXTREMITIES: No pedal edema. SKIN: No rashes, jaundice. NEUROLOGIC: Remains confused, arousable but non-conversive. No focal deficits. - Labs CBC & Chem 7: 07/16/18 08:01 07/16/18 08:01 Labs: Abnormal Lab Results - Last 24 Hours (Table) 07/16/18 07/16/18 07/16/18 Range/Units 08:01 08:01 08:01 WBC 13.3 H (3.8-10.6) k/uL RBC 2.93 L (3.80-5.40) m/uL Hgb 8.4 L (11.4-16.0) gm/dL Hct 27.6 L (34.0-46.0) % MCHC 30.5 L (31.0-37.0) g/dL RDW 20.5 H (11.5-15.5) % Neutrophils # 11.2 H (1.3-7.7) k/uL Chloride 109 H (98-107) mmol/L Creatinine 0.41 L (0.52-1.04) mg/dL Glucose 143 H (74-99) mg/dL Calcium 8.1 L (8.4-10.2) mg/dL Total Bilirubin 13.4 H (0.2-1.3) mg/dL AST 80 H (14-36) U/L ALT 55 H (9-52) U/L Alkaline Phosphatase 458 H (38-126) U/L Ammonia 47 H (<30) umol/L Total Protein 5.8 L (6.3-8.2) g/dL Albumin 2.3 L (3.5-5.0) g/dL Microbiology - Last 24 Hours (Table) 07/13/18 20:05 Blood Culture - Preliminary Blood No Growth after 48 hours Assessment and Plan (1) Altered mental status Narrative/Plan: Likely multifactorial with the patient presenting with confusion and increased ammonia, which has subsequently improved on lactulose therapy, likely also secondary to narcotic use and decreased metabolism in the setting of metastatic disease to the liver. Current Visit: Yes Status: Acute Code(s): R41.82 - ALTERED MENTAL STATUS, UNSPECIFIED SNOMED Code(s): 313981278 (2) Hyperammonemia Current Visit: Yes Status: Acute Code(s): E72.20 - DISORDER OF UREA CYCLE METABOLISM, UNSPECIFIED SNOMED Code(s): 4311577 (3) Pancreatic cancer Current Visit: Yes Status: Acute Priority: High Code(s): C25.9 - MALIGNANT NEOPLASM OF PANCREAS, UNSPECIFIED SNOMED Code(s): 416685400 (4) Jaundice Current Visit: Yes Status: Chronic Priority: Medium Code(s): R17 - UNSPECIFIED JAUNDICE SNOMED Code(s): 66155973 (5) Transaminitis Narrative/Plan: Elevation in liver enzymes in both a cholestatic and hepatocellular pattern, likely secondary to metastatic cancer to the liver with slight improvement in bilirubin after external drain placement, however bilirubin likely remains elevated due to parenchymal disease. Current Visit: Yes Status: Chronic Priority: High Code(s): R74.0 - NONSPEC ELEV OF LEVELS OF TRANSAMNS & LACTIC ACID DEHYDRGNSE SNOMED Code(s): 830279176 Plan: Supportive care Okay for diet Continue Creon replacement therapy, recommended dosage is at least 30,000 IUs taken with meals and titrated to symptoms, with the patient currently on an appropriate dose Lactulose dose increased today Continue Xifaxan therapy Recommend judicious use of narcotics and anxiolytics as metabolism is affected by metastatic disease to the liver and may be contributing to the patient's confusion Thank you for allowing us to participate in the care of the patient we will continue to follow
[2018-07-16] MEDS: MONTELUKAST 10 MG TAB PO SCH (22:31)
[2018-07-17] MEDS: HEPARIN SODIUM,PORCINE 5,000 UNIT/ML 1 ML VIAL SQ SCH ×4 (02:45→23:42)
[2018-07-17] MEDS: AMYLASE PO SCH ×4 (07:51→20:10)
[2018-07-17] MEDS: LIPASE PO SCH ×4 (07:51→20:10)
[2018-07-17] MEDS: PROTEASE PO SCH ×4 (07:51→20:10)
[2018-07-17 08:06] LABS: ALT 69 U/L (9-52); AST 152 U/L (14-36); Alkaline Phosphatase 381 U/L (38-126); Anion Gap 6 mmol/L; Blood Urea Nitrogen 12 mg/dL (7-17); Calcium 8.1 mg/dL (8.4-10.2); Carbon Dioxide 24 mmol/L (22-30); Chloride 112 mmol/L (98-107); Glucose 119 mg/dL (74-99); Sodium 142 mmol/L (137-145); Total Bilirubin 12.6 mg/dL (0.2-1.3); Total Protein 5.2 g/dL (6.3-8.2)
[2018-07-17] MEDS: DRONABINOL 2.5 MG CAP PO SCH ×2 (08:22→17:02)
[2018-07-17] MEDS ORDERED: Potassium Replacement Protocol 1 EACH MISC MISCELLANE PRN (08:48)
[2018-07-17] MEDS: MORPHINE SULFATE ER 60 MG TABLET PO SCH (08:51)
[2018-07-17] MEDS: POTASSIUM CHLORIDE 20 MEQ in WATER FOR INJECTION 1 100ML.BAG IVPB SCH ×2 (09:33→12:42)
[2018-07-17] MEDS: LACTULOSE 20 GM/30 ML CUP PO SCH ×3 (09:38→20:22)
[2018-07-17] MEDS: PANTOPRAZOLE 40 MG TABLET PO SCH (09:38)
[2018-07-17] MEDS: VENLAFAXINE HCL ER 150 MG CAP PO SCH (09:38)
[2018-07-17] MEDS: RIFAXIMIN 550 MG TABLET PO SCH ×2 (09:39→20:22)
[2018-07-17] MEDS: VORTIOXETINE HYDROBROMIDE 20 MG TABLET PO SCH (09:40)
[2018-07-17] MEDS: MORPHINE SULFATE ER 30 MG TABLET PO SCH ×3 (09:45→23:42)
--- NOTE | 2018-07-17 10:11 | P.PN ---
Subjective Progress Note Date: 07/17/18 Patient's overall condition is not changed compared to yesterday. She is lethargic but easily arousable. She is unable to conduct any meaningful conversation. Objective - Vital Signs Vital signs: Vital Signs Temp 97.9 F 07/17/18 05:00 Pulse 98 07/17/18 05:00 Resp 16 07/17/18 05:00 BP 108/65 07/17/18 05:00 Pulse Ox 98 07/17/18 05:00 Intake & Output 07/16/18 07/17/18 07/17/18 18:59 06:59 18:59 Intake Total 200 Output Total 370 320 Balance -370 -120 Intake: Oral 200 Output: Drainage 20 20 Left Upper Abdomen 20 20 Urine 350 300 Uretheral (Saini) 300 Other: Voiding Method Indwelling Catheter Indwelling Catheter # Bowel Movements 2 1 - Exam General: The patient is awake and alert, she appeared jaundiced Eye: Icteric sclera bilaterally. Cardiovascular: Normal S1-S2, no S3-S4, no murmurs. Respiratory: Lungs clear to auscultation bilaterally Gastrointestinal: Abdomen is soft, nontender Musculoskeletal: There is no pedal edema. Skin: Skin is warm and dry - Labs CBC & Chem 7: 07/16/18 08:01 07/17/18 07:43 Labs: Abnormal Lab Results - Last 24 Hours (Table) 07/16/18 07/17/18 Range/Units 08:01 07:43 Potassium 3.0 L (3.5-5.1) mmol/L Chloride 112 H (98-107) mmol/L Creatinine 0.43 L (0.52-1.04) mg/dL Glucose 119 H (74-99) mg/dL Calcium 8.1 L (8.4-10.2) mg/dL Total Bilirubin 12.6 H (0.2-1.3) mg/dL AST 152 H (14-36) U/L ALT 69 H (9-52) U/L Alkaline Phosphatase 381 H (38-126) U/L Ammonia 47 H (<30) umol/L Total Protein 5.2 L (6.3-8.2) g/dL Albumin 2.0 L (3.5-5.0) g/dL Microbiology - Last 24 Hours (Table) 07/13/18 20:05 Blood Culture - Preliminary Blood No Growth after 72 hours Assessment and Plan Assessment: 1. Stage IV pancreatic cancer with metastasis to the liver and lungs. Status post Whipple procedure. Now followed by oncology. Currently on immunotherapy. 2. Acute toxo metabolic encephalopathy secondary to hepatic encephalopathy and hyperbilirubinemia, ammonia level fluctuating. Continue lactulose 3 times a day targeting 3-5 bowel movements per day. Rifaximin twice daily. Percutaneous biliary drain care. Abdominal ultrasound showed minimal ascites to be getting 3. Chronic anemia, hemoglobin stable 4. Chronic pain: Both chronic back pain and abdominal pain. Maintained on high dose of opiate. Continue pain management. Decrease morphine dose MS Contin 30 mg 3 times a day Today, I reviewed her medication list and lab work results. Continue lactulose. Appreciate instructional design consultant's recommendations. Repeat lab work in the morning. Today, I had a prolonged discussion with the oncology team regarding the possible benefits of immunotherapy. I also met with her who is her primary caregiver and the local pathologist to discuss her poor prognosis. He is very realistic. He would like to discuss further with oncology to see what's the plan for immunotherapy. If immunotherapy is not recommended by oncology any further he is open to enroll his back in hospice. We will continue current management otherwise.
[2018-07-17 10:46] VITALS: BMI 21.7
[2018-07-17] MEDS: MONTELUKAST 10 MG TAB PO SCH (20:22)
--- NOTE | 2018-07-17 20:37 | P.PN ---
Subjective Progress Note Date: 07/17/18 Principal diagnosis: Metastatic pancreatic cancer, encephalopathy Patient lying in bed. No acute complaints or events overnight reported by the nursing staff. Objective - Vital Signs Vital signs: Vital Signs Temp 98.3 F 07/17/18 12:29 Pulse 82 07/17/18 12:59 Resp 16 07/17/18 12:29 BP 114/69 07/17/18 12:29 Pulse Ox 96 07/17/18 12:29 Intake & Output 07/17/18 07/17/18 07/18/18 06:59 18:59 06:59 Intake Total 200 Output Total 320 350 Balance -120 -350 Weight 57.4 kg Intake: Oral 200 Output: Drainage 20 50 Left Upper Abdomen 20 50 Urine 300 300 Uretheral (Saini) 300 300 Other: Voiding Method Indwelling Catheter Indwelling Catheter # Bowel Movements 1 2 - Exam On physical examination, patient appears comfortable in no apparent distress. HEAD: Normocephalic, atraumatic. EYES: Icterus. No conjunctival injection. MOUTH: No lesions, tongue midline. NECK: Trachea midline, no gross abnormalities. CHEST: Clear to auscultation with no wheezing or rhonchi appreciated. HEART: Regular rate and rhythm. ABDOMEN: Soft. Bowel sounds are positive. No organomegaly. No guarding or rigidity. EXTREMITIES: No pedal edema. SKIN: No rashes, jaundice. NEUROLOGIC: Remains confused, arousable but non-conversive. No focal deficits. - Labs CBC & Chem 7: 07/16/18 08:01 07/17/18 07:43 Labs: Abnormal Lab Results - Last 24 Hours (Table) 07/17/18 Range/Units 07:43 Potassium 3.0 L (3.5-5.1) mmol/L Chloride 112 H (98-107) mmol/L Creatinine 0.43 L (0.52-1.04) mg/dL Glucose 119 H (74-99) mg/dL Calcium 8.1 L (8.4-10.2) mg/dL Total Bilirubin 12.6 H (0.2-1.3) mg/dL AST 152 H (14-36) U/L ALT 69 H (9-52) U/L Alkaline Phosphatase 381 H (38-126) U/L Total Protein 5.2 L (6.3-8.2) g/dL Albumin 2.0 L (3.5-5.0) g/dL Microbiology - Last 24 Hours (Table) 07/13/18 20:05 Blood Culture - Preliminary Blood No Growth after 72 hours Assessment and Plan (1) Altered mental status Narrative/Plan: Likely multifactorial with the patient presenting with confusion and increased ammonia, which has subsequently improved somewhat on lactulose therapy, likely also secondary to narcotic use and decreased metabolism in the setting of metastatic disease to the liver. Current Visit: Yes Status: Acute Code(s): R41.82 - ALTERED MENTAL STATUS, UNSPECIFIED SNOMED Code(s): 598127600 (2) Hyperammonemia Current Visit: Yes Status: Acute Code(s): E72.20 - DISORDER OF UREA CYCLE METABOLISM, UNSPECIFIED SNOMED Code(s): 0695853 (3) Pancreatic cancer Current Visit: Yes Status: Acute Priority: High Code(s): C25.9 - MALIGNANT NEOPLASM OF PANCREAS, UNSPECIFIED SNOMED Code(s): 346501973 (4) Jaundice Current Visit: Yes Status: Chronic Priority: Medium Code(s): R17 - UNSPECIFIED JAUNDICE SNOMED Code(s): 13860309 (5) Transaminitis Narrative/Plan: Elevation in liver enzymes in both a cholestatic and hepatocellular pattern, likely secondary to metastatic cancer to the liver with slight improvement in bilirubin after external drain placement, however bilirubin likely remains elevated due to parenchymal disease. Current Visit: Yes Status: Chronic Priority: High Code(s): R74.0 - NONSPEC ELEV OF LEVELS OF TRANSAMNS & LACTIC ACID DEHYDRGNSE SNOMED Code(s): 380685966 Plan: Supportive care Okay for diet Continue Creon replacement therapy, recommended dosage is at least 30,000 IUs taken with meals and titrated to symptoms, with the patient currently on an appropriate dose Lactulose dose increased today Continue Xifaxan therapy Recommend judicious use of narcotics and anxiolytics as metabolism is affected by metastatic disease to the liver and may be contributing to the patient's confusion Thank you for allowing us to participate in the care of the patient the GI service will stand by please call us back with any questions or concerns
--- NOTE | 2018-07-18 00:52 | P.PN ---
Subjective Progress Note Date: 07/17/18 Principal diagnosis: Metastatic pancreatic adenocarcinoma In follow-up today patient states that she wants to go home with hospice. Her is at the bedside. We did have a conversation about the use of nivolumab, expectations when receiving immunotherapy and durability of response. Patient requested something to drink, she did not mention pain or nausea Objective - Vital Signs Vital signs: Vital Signs Temp 98.3 F 07/17/18 12:29 Pulse 82 07/17/18 12:59 Resp 16 07/17/18 12:29 BP 114/69 07/17/18 12:29 Pulse Ox 96 07/17/18 12:29 Intake & Output 07/16/18 07/17/18 07/17/18 18:59 06:59 18:59 Intake Total 200 Output Total 370 320 350 Balance -370 -120 -350 Weight 57.4 kg Intake: Oral 200 Output: Drainage 20 20 50 Left Upper Abdomen 20 20 50 Urine 350 300 300 Uretheral (Saini) 300 300 Other: Voiding Method Indwelling Catheter Indwelling Catheter Indwelling Catheter # Bowel Movements 2 1 - Exam Well-developed, thin, frail, jaundiced, icteric sclera, slightly restless, al ert, did follow the conversation well, did answer questions appropriately - Labs CBC & Chem 7: 07/16/18 08:01 07/17/18 07:43 Labs: Abnormal Lab Results - Last 24 Hours (Table) 07/17/18 Range/Units 07:43 Potassium 3.0 L (3.5-5.1) mmol/L Chloride 112 H (98-107) mmol/L Creatinine 0.43 L (0.52-1.04) mg/dL Glucose 119 H (74-99) mg/dL Calcium 8.1 L (8.4-10.2) mg/dL Total Bilirubin 12.6 H (0.2-1.3) mg/dL AST 152 H (14-36) U/L ALT 69 H (9-52) U/L Alkaline Phosphatase 381 H (38-126) U/L Total Protein 5.2 L (6.3-8.2) g/dL Albumin 2.0 L (3.5-5.0) g/dL Microbiology - Last 24 Hours (Table) 07/13/18 20:05 Blood Culture - Preliminary Blood No Growth after 72 hours Assessment and Plan (1) Pancreatic cancer Narrative/Plan: Patient received second dose of nivolumab, compassionate use for metastatic pancreatic cancer. Current Visit: Yes Status: Acute Priority: High Code(s): C25.9 - MALIGNANT NEOPLASM OF PANCREAS, UNSPECIFIED SNOMED Code(s): 829431936 (2) Hepatic encephalopathy Narrative/Plan: Need to continue lactulose despite increased bowel movements, continue to educate pt on importance of lactulose. Ammonia level was elevated today. Lab in AM Current Visit: Yes Status: Chronic Priority: Medium Code(s): K72.90 - HEPATIC FAILURE, UNSPECIFIED WITHOUT COMA SNOMED Code(s): 17433879 (3) Jaundice Current Visit: Yes Status: Chronic Priority: Medium Code(s): R17 - UNSPECIFIED JAUNDICE SNOMED Code(s): 12544919 (4) Transaminitis Current Visit: Yes Status: Chronic Priority: High Code(s): R74.0 - NONSPEC ELEV OF LEVELS OF TRANSAMNS & LACTIC ACID DEHYDRGNSE SNOMED Code(s): 832799580 (5) Diarrhea Current Visit: Yes Status: Acute Priority: High Code(s): R19.7 - DIARRHEA, UNSPECIFIED SNOMED Code(s): 72160729 Plan: Discussed what a clinical response to treatment would present as and clarified expectations and goals of care. Reviewed immunotherapy, anticipated response of tumor to its effects, compassionate use and duration of response. All questions answered to the best of my ability Plan is to have [facility] informational visit to get questions answered about care at home. Follow up in AM
[2018-07-18] MEDS: MORPHINE SULFATE 2 MG/ML SYRINGE IVP PRN (04:55)
[2018-07-18] MEDS: PROTEASE PO SCH ×4 (08:13→20:56)
[2018-07-18] MEDS: HEPARIN SODIUM,PORCINE 5,000 UNIT/ML 1 ML VIAL SQ SCH (08:13)
[2018-07-18] MEDS: DRONABINOL 2.5 MG CAP PO SCH ×2 (08:13→16:18)
[2018-07-18] MEDS: LIPASE PO SCH ×4 (08:13→20:56)
[2018-07-18] MEDS: AMYLASE PO SCH ×4 (08:13→20:56)
[2018-07-18 08:32] LABS: Anisocytosis Moderate; Basophils % (A) 0 %; Eosinophils % (A) 0 %; HCT 28.1 % (34.0-46.0); HGB 8.3 gm/dL (11.4-16.0); Hypochromasia Marked; Lymphocytes # (A) 0.6 k/uL (1.0-4.8); Lymphocytes % (A) 3 %; MCH 27.9 pg (25.0-35.0); MCHC 29.7 g/dL (31.0-37.0); MCV 93.8 fL (80.0-100.0); Macrocytosis Slight; Mean Platelet Volume 10.7; Monocytes # (A) 0.4 k/uL (0-1.0); Monocytes % (A) 2 %; Neutrophils # (A) 19.4 k/uL (1.3-7.7); Neutrophils % (A) 93 %; Platelet Count 168 k/uL (150-450); Poikilocytosis Slight; RBC 2.99 m/uL (3.80-5.40); RDW 20.2 % (11.5-15.5); WBC 20.8 k/uL (3.8-10.6)
[2018-07-18] MEDS: MORPHINE SULFATE ER 30 MG TABLET PO SCH ×3 (08:34→23:57)
[2018-07-18 08:44] LABS: Glucose 124 mg/dL (74-99); Potassium 3.2 mmol/L (3.5-5.1); Sodium 142 mmol/L (137-145); Total Protein 5.1 g/dL (6.3-8.2)
[2018-07-18 08:45] LABS: ALT 89 U/L (9-52); AST 246 U/L (14-36); Alkaline Phosphatase 338 U/L (38-126); Blood Urea Nitrogen 14 mg/dL (7-17); Calcium 8.1 mg/dL (8.4-10.2); Carbon Dioxide 17 mmol/L (22-30); Total Bilirubin 12.9 mg/dL (0.2-1.3)
[2018-07-18 08:57] LABS: Anion Gap 11 mmol/L; Chloride 114 mmol/L (98-107)
[2018-07-18] MEDS ORDERED: LORazepam 1 MG TAB PO PRN (09:53)
--- NOTE | 2018-07-18 09:56 | P.PN ---
Subjective Progress Note Date: 07/18/18 Patient's overall condition is not changed compared to yesterday. She is lethargic but easily arousable. She is unable to conduct any meaningful conversation. Objective - Vital Signs Vital signs: Vital Signs Temp 98.4 F 07/18/18 09:17 Pulse 111 H 07/18/18 09:19 Resp 20 07/18/18 09:19 BP 107/69 07/18/18 09:17 Pulse Ox 92 L 07/18/18 09:17 Intake & Output 07/17/18 07/18/18 07/18/18 18:59 06:59 18:59 Output Total 350 500 Balance -350 -500 Weight 57.4 kg Output: Drainage 50 Left Upper Abdomen 50 Urine 300 500 Uretheral (Saini) 300 500 Other: Voiding Method Indwelling Catheter Indwelling Catheter Indwelling Catheter # Bowel Movements 2 3 - Exam General: The patient is awake and alert, she appeared jaundiced Eye: Icteric sclera bilaterally. Cardiovascular: Normal S1-S2, no S3-S4, no murmurs. Respiratory: Lungs clear to auscultation bilaterally Gastrointestinal: Abdomen is soft, nontender Musculoskeletal: There is no pedal edema. Skin: Skin is warm and dry - Labs CBC & Chem 7: 07/18/18 08:12 07/18/18 08:12 Labs: Abnormal Lab Results - Last 24 Hours (Table) 07/18/18 07/18/18 Range/Units 08:12 08:12 WBC 20.8 H (3.8-10.6) k/uL RBC 2.99 L (3.80-5.40) m/uL Hgb 8.3 L (11.4-16.0) gm/dL Hct 28.1 L (34.0-46.0) % MCHC 29.7 L (31.0-37.0) g/dL RDW 20.2 H (11.5-15.5) % Neutrophils # 19.4 H (1.3-7.7) k/uL Lymphocytes # 0.6 L (1.0-4.8) k/uL Potassium 3.2 L (3.5-5.1) mmol/L Chloride 114 H (98-107) mmol/L Carbon Dioxide 17 L (22-30) mmol/L Glucose 124 H (74-99) mg/dL Calcium 8.1 L (8.4-10.2) mg/dL Total Bilirubin 12.9 H (0.2-1.3) mg/dL AST 246 H (14-36) U/L ALT 89 H (9-52) U/L Alkaline Phosphatase 338 H (38-126) U/L Total Protein 5.1 L (6.3-8.2) g/dL Albumin 2.0 L (3.5-5.0) g/dL Microbiology - Last 24 Hours (Table) 07/13/18 20:05 Blood Culture - Preliminary Blood No Growth after 96 hours Assessment and Plan Assessment: 1. Stage IV pancreatic cancer with metastasis to the liver and lungs. Status post Whipple procedure. 2. Acute toxo metabolic encephalopathy secondary to hepatic encephalopathy and hyperbilirubinemia, ammonia level fluctuating. Continue lactulose 3 times a day targeting 3-5 bowel movements per day. Rifaximin twice daily. Percutaneous biliary drain care. Abdominal ultrasound showed minimal ascites to be getting 3. Chronic anemia, hemoglobin stable 4. Chronic pain: Both chronic back pain and abdominal pain. Maintained on high dose of opiate. Continue pain management. Today, I discussed the patient's condition with her nurse, keycase assembler, and the hospice nurse. Patient's who is her decision maker met with the oncologist yesterday and they elected to discontinue immunotherapy and pursue hospice care. Their choice is to do hospice at home. Her is unable to take her home today as he is scheduled for a meeting at work until 7 PM. He requested the patient to be discharged home tomorrow. We will continue current management otherwise. Discontinue all unnecessary medication and continue comfort care.
[2018-07-18] MEDS: LACTULOSE 20 GM/30 ML CUP PO SCH ×3 (09:57→21:32)
[2018-07-18] MEDS: PANTOPRAZOLE 40 MG TABLET PO SCH (09:59)
[2018-07-18] MEDS: RIFAXIMIN 550 MG TABLET PO SCH ×2 (09:59→21:32)
[2018-07-18] MEDS: VORTIOXETINE HYDROBROMIDE 20 MG TABLET PO SCH (10:50)
[2018-07-18] MEDS: VENLAFAXINE HCL ER 150 MG CAP PO SCH (10:51)
[2018-07-19] MEDS: DRONABINOL 2.5 MG CAP PO SCH ×2 (08:32→16:31)
[2018-07-19] MEDS: MORPHINE SULFATE ER 30 MG TABLET PO SCH ×3 (08:33→23:49)
[2018-07-19] MEDS: LACTULOSE 20 GM/30 ML CUP PO SCH ×3 (08:34→21:30)
[2018-07-19] MEDS: RIFAXIMIN 550 MG TABLET PO SCH ×2 (08:34→21:30)
[2018-07-19] MEDS: AMYLASE PO PRN (08:35)
[2018-07-19] MEDS: LIPASE PO PRN (08:35)
[2018-07-19] MEDS: PROTEASE PO PRN (08:35)
[2018-07-19] MEDS: PANTOPRAZOLE 40 MG TABLET PO SCH (11:28)
[2018-07-19] MEDS: LIPASE PO SCH ×4 (11:28→20:00)
[2018-07-19] MEDS: AMYLASE PO SCH ×4 (11:28→20:00)
[2018-07-19] MEDS: PROTEASE PO SCH ×4 (11:28→20:00)
--- NOTE | 2018-07-19 14:12 | P.PN ---
Subjective Progress Note Date: 07/19/18 Principal diagnosis: Hepatic encephalopathy Patient was seen and examined. No acute events overnight. 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 She is unable to have any meaningful conversations at this time. She is hospice, DNR/DNI. Objective - Vital Signs Vital signs: Vital Signs Temp 98.1 F 07/19/18 12:25 Pulse 103 H 07/19/18 12:25 Resp 16 07/19/18 12:25 BP 115/64 07/19/18 12:25 Pulse Ox 100 07/19/18 12:25 Intake & Output 07/18/18 07/19/18 07/19/18 18:59 06:59 18:59 Intake Total 737 960 100 Output Total 425 315 Balance 312 645 100 Weight 57.4 kg Intake: Oral 737 960 100 Output: Drainage 25 15 Left Upper Abdomen 25 15 Urine 400 300 Other: Voiding Method Indwelling Catheter Indwelling Catheter Indwelling Catheter # Bowel Movements 1 - Exam General: [non toxic], [no distress], [appears at stated age] Derm: [warm], [dry], [jaundiced] Head: [atraumatic], [normocephalic], [symmetric] Eyes: [EOMI], [no lid lag], [jaundice sclera] Mouth: [no lip lesion], [mucus membranes moist] Cardiovascular: [S1S2 reg], [no murmur] Lungs: [CTA bilateral], [no rhonchi, no rales] , [no accessory muscle use] Abdominal: [soft], [ nontender to palpation], [no guarding], [no appreciable organomegaly] Ext: [no gross muscle atrophy], [no edema], [no contractures] Neuro: [Unable to determine] Psych: [Unable to communicate effectively] - Labs CBC & Chem 7: 07/18/18 08:12 07/18/18 08:12 Labs: Microbiology - Last 24 Hours (Table) 07/13/18 20:05 Blood Culture - Preliminary Blood No Growth after 120 hours Assessment and Plan Assessment: Assessment and Plan Acute metabolic encephalopathy secondary to hyperammonemia and hyperbilirubinemia Stage IV pancreatic cancer with metastasis to liver and lungs Leukocytosis Hyperchloremic metabolic acidosis Hypokalemia Ammonia fluctuant, most recent 22. Total bilirubin 12.9, AST 246, ALP 89, alkaline phosphatase 338. Continue lactulose 20 g by mouth 3 times a day targeting 3-5 bowel movements. Continue rifaximin 550 mg by mouth twice a day. Aspiration and fall precautions. Consensus on hospice. Patient is DO NOT RESUSCITATE and DO NOT INTUBATE. Percutaneous biliary drain care. Abdominal ultrasound shows minimal ascites. Pain control with Dronabinol, fentanyl, MS Contin, morphine IV as needed. Zofran as needed for nausea or vomiting. Continue Protonix. Continue pancreatic enzymes. Leukocytosis of 20.8 with neutrophilia. Persistently elevated over the last 2 days, possibly related to oncological condition. Patient is afebrile. Blood culture negative at 120 hours. Urine culture negative. Chest x-ray difficult to exclude pneumonia given metastasis in the background. Daily CBC. Possibly secondary to GI loss. Encourage hydration by mouth. Daily BMP. Possibly secondary to GI loss. Replace via protocol. Daily BMP. Patient will hopefully be discharged today to go home with home hospice.
[2018-07-20] MEDS: MORPHINE SULFATE 2 MG/ML SYRINGE IVP PRN (04:40)
[2018-07-20 05:38] VITALS: RESP 18
[2018-07-20] MEDS: LACTULOSE 20 GM/30 ML CUP PO SCH (08:17)
[2018-07-20] MEDS: PANTOPRAZOLE 40 MG TABLET PO SCH (08:17)
[2018-07-20] MEDS: MORPHINE SULFATE ER 30 MG TABLET PO SCH (08:17)
[2018-07-20] MEDS: RIFAXIMIN 550 MG TABLET PO SCH (08:17)
[2018-07-20] MEDS: DRONABINOL 2.5 MG CAP PO SCH (08:17)
[2018-07-20] MEDS: LIPASE PO SCH ×2 (08:18→11:48)
[2018-07-20] MEDS: AMYLASE PO SCH ×2 (08:18→11:48)
[2018-07-20] MEDS: PROTEASE PO SCH ×2 (08:18→11:48)
--- NOTE | 2018-07-20 09:18 | P.PN ---
Subjective Progress Note Date: 07/20/18 Principal diagnosis: altered mental status Patient was seen and examined this morning. No acute events overnight. 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 Patient adamant about not wanting to go home. Otherwise, unable to make meaningful conversation. Objective - Vital Signs Vital signs: Vital Signs Temp 99.2 F 07/20/18 06:10 Pulse 111 H 07/20/18 07:26 Resp 18 07/20/18 07:26 BP 111/60 07/20/18 05:00 Pulse Ox 96 07/20/18 05:00 Intake & Output 07/19/18 07/20/18 07/20/18 18:59 06:59 18:59 Intake Total 100 300 Output Total 300 400 Balance -200 -100 Intake: Oral 100 300 Output: Urine 300 400 Uretheral (Saini) 400 Other: Voiding Method Indwelling Catheter Indwelling Catheter Indwelling Catheter # Voids 300 - Exam General: [non toxic], [labored breathing on nasal cannula], [appears at stated age] Derm: [warm], [dry], [jaundiced] Head: [atraumatic], [normocephalic], [symmetric] Eyes: [EOMI], [no lid lag], [jaundice sclera] Mouth: [no lip lesion], [mucus membranes moist] Cardiovascular: [S1S2 reg], [tachycardic] Lungs: [decreased breath sounds bilaterally due to poor inspiratory effort], [no rhonchi, no rales] , [no accessory muscle use] Abdominal: [soft], [ nontender to palpation], [no guarding], [no appreciable organomegaly] Ext: [no gross muscle atrophy], [no edema], [no contractures] Neuro: [Unable to determine] Psych: [Unable to communicate effectively] - Labs CBC & Chem 7: 07/18/18 08:12 07/18/18 08:12 Labs: Microbiology - Last 24 Hours (Table) 07/13/18 20:05 Blood Culture - Final Blood No Growth after 144 hours Assessment and Plan Assessment: Assessment and Plan Acute metabolic encephalopathy secondary to hyperammonemia and hyperbilirubinemia Stage IV pancreatic cancer with metastasis to liver and lungs Leukocytosis Hyperchloremic metabolic acidosis Hypokalemia Ammonia fluctuant, most recent 22. Total bilirubin 12.9, AST 246, ALP 89, alkaline phosphatase 338. Continue lactulose 20 g by mouth 3 times a day target ing 3-5 bowel movements. Continue rifaximin 550 mg by mouth twice a day. Aspiration and fall precautions. Consensus on hospice. Patient is DO NOT RESUSCITATE and DO NOT INTUBATE. Percutaneous biliary drain care. Abdominal ultrasound shows minimal ascites. Pain control with Dronabinol, fentanyl, MS Contin, morphine IV as needed. Zofran as needed for nausea or vomiting. Continue Protonix. Continue pancreatic enzymes. Leukocytosis of 20.8 with neutrophilia. Persistently elevated over the last 2 days, possibly related to oncological condition. Patient with low-grade fever. Blood culture negative at 144 hours. Urine culture negative. Chest x-ray difficult to exclude pneumonia given metastasis in the background. Daily CBC. Conservative measures as patient is DNR/DNI. Possibly secondary to GI loss. Encourage hydration by mouth. Daily BMP. Possibly secondary to GI loss. Replace via protocol. Daily BMP. We'll hold discharge as patient does not want to go home. Will discuss with social work tomorrow regarding discharge planning. Patient is poor prognosis. She is hospice, DNR/DNI.
[2018-07-20 12:26] VITALS: BP 110/69; PULSE 101; TEMP 98
== END 2018-07-20 13:57 | disposition hospice, home (50) | DRG 441 ==
LOC: EC 18:51 → 2SICU 20:55 → 3NMEDONC 07-14 18:21
PROVIDERS: ADMIT Internal Medicine; ATTEND Internal Medicine
DX: K72.00 Acute and subacute hepatic failure without coma (principal); G92 Toxic encephalopathy; C25.9 Malignant neoplasm of pancreas, unspecified; C78.00 Secondary malignant neoplasm of unspecified lung; C78.7 Secondary malignant neoplasm of liver and intrahepatic bile duct; E72.20 Disorder of urea cycle metabolism, unspecified; E87.2 Acidosis; D63.8 Anemia in other chronic diseases classified elsewhere; D72.829 Elevated white blood cell count, unspecified; E03.9 Hypothyroidism, unspecified; E87.6 Hypokalemia; F32.9 Major depressive disorder, single episode, unspecified; F41.9 Anxiety disorder, unspecified; G47.33 Obstructive sleep apnea (adult) (pediatric); G89.29 Other chronic pain; K21.9 Gastro-esophageal reflux disease without esophagitis; Z66 Do not resuscitate; Z51.5 Encounter for palliative care; Z79.1 Long term (current) use of non-steroidal anti-inflammatories (NSAID); Z79.899 Other long term (current) drug therapy; Z80.0 Family history of malignant neoplasm of digestive organs; Z87.442 Personal history of urinary calculi; Z90.411 Acquired partial absence of pancreas; Z98.82 Breast implant status; Z88.8 Allergy status to other drugs, medicaments and biological substances; Z88.1 Allergy status to other antibiotic agents; Z91.041 Radiographic dye allergy status; Z91.013 Allergy to seafood; G62.0 Drug-induced polyneuropathy; T45.1X5A Adverse effect of antineoplastic and immunosuppressive drugs, initial encounter
CPT/HCPCS: 36415; 71045; 76705; 80048; 80053; 81001; 82140; 83735; 84100; 85025; 85610; 85730; 87040; 87086; 93005; 96360; 96361; 99285